=== PATIENT | male | born 1985 | race African-American/Black ===

== ENCOUNTER 2023-10-03 15:42 | Outpatient (AMB) | payer OTHER, SELFPAY ==
--- NOTE | 2023-10-03 15:45 | A.OFFPC_ITS ---
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 Will order labs. Pt reports his told him that he snores and has apneic episodes. Will refer for sleep study. Pt's blood pressure is elevated today. He reports that it is more stable at home, averaging in the 120s-130s/70s-80s. Denies chest pain, shortness of breath, headache, dizziness, and blurred vision. Pt c/o medial right knee pain. He reports that this started in November 2022 while training for a PT test. Pt reports the most pain with sprinting or running long distances. Pt has had an XR previously and gone to PT. Will repeat XR and consider MRI. Pt reports skin lesions (x2) to his scalp. He reports intermittent itching to these lesions. Will refer to derm. Pt c/o a buzzing noise in his ear (left). He reports that these episodes last only seconds to minutes. 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 Most likely tinnitus. Will refer to speech and hearing for further evaluation. [facility] Surgical History S/P shoulder surgery Family History Father Diabetes Mother No problems noted. 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 1. Little interest or pleasure in doing things: not at all 2. Feeling down, depressed, or hopeless: not at all 3. Trouble falling or staying asleep, or sleeping too much: not at all 4. Feeling tired or having little energy: not at all 5. Poor appetite or overeating: not at all 6. Feeling bad about yourself - or that you are a failure or have let yourself or your family down: not at all 7. Trouble concentrating on things, such as reading the newspaper or watching television: not at all 8. Moving or speaking so slowly that other people could have noticed. Or the opposite - being so fidgety or restless that you have been moving around a lot more than usual: not at all 9. Thoughts that you would be better off or of hurting yourself in some way: not at all Total score: 0 Depression Screening Interpretation: Negative Depression Screening Done: Yes 26898 - PHQ-9 Billing: Yes Source: Developed by Drs. Franky Agarwal, Yolande Dorsey, Riaz Li and colleagues, with an educational fior from [employer]. Thrive Questionnaire Date Thrive assessed: 10/03/23 I am a: Patient What is your living situation today?: I have a steady place to live Within the past 12 months, did the food you bought not last and you didn't have the money to get more?: Never true Within the past 12 months, did you worry whether your food would run out before you got money to buy more?: Never true Do you have trouble paying for medicines?: No Do you have trouble getting transportation to medical appointments?: No Do you have trouble paying your heating and electricity bill?: No Do you have trouble taking care of your child, family member or friend?: No Do you have trouble with day-to-day activities such as bathing, preparing meals, shopping, managing finances, etc.?: No Are you currently unemployed and looking for a job?: No Are you interested in more education?: No Please select the resources that you would like help with: None Currently or been in a relationship where the following occur: no concerns reported THRIVE Score: 0 AUDIT C Alcohol Use Questionnaire (AUDIT-C) 1. How often do you have a drink containing alcohol?: Never 3. How often do you have six or more drinks on one occasion?: Never Total Score: 0 Score Reviewed/Action Taken: Yes SARAH-7 AMB Questionnaire SARAH-7 Date SARAH - 7 assessed: 10/03/23 Feeling nervous, anxious, or on edge: 0 = Not at all Not being able to stop or control worryin = Not at all Worrying too much about different things: 0 = Not at all Trouble relaxin = Not at all Being so restless that it is hard to sit still: 0 = Not at all Becoming easily annoyed or irritable: 0 = Not at all Feeling afraid as if something awful might happen: 0 = Not at all Total SARAH-7 score (0-4 normal; 5-9 mild; 10-14 moderate; 15-21 severe): 0 Source: Developed by Drs. Franky Agarwal, Yolande Dorsey, Riaz Li and colleagues, with an educational fior from [employer]. SARAH-7 Assessment Billing SARAH-7 Assessment Tool: SARAH-7 Assessment 31157 Review of Systems Const Denies chills and Denies fever(s) Eyes Denies blurry vision ENT Denies vertigo, Denies dizziness and Denies sore throat Card Denies chest pain at rest, Denies chest pain with activity, Denies diaphoresis, Denies dyspnea and Denies dyspnea on exertion Resp Denies cough, Denies dyspnea, Denies dyspnea on exertion and Denies wheezing GI Denies abdominal pain, Denies melena, Denies hematochezia, Denies constipation, Denies diarrhea and Denies loose stools Denies hematuria Musc Denies numbness and Denies tingling Skin/Breast Denies lesions Neuro Denies vertigo, Denies dizziness, Denies numbness and Denies tingling Psych Denies anxiety, Denies depression, Denies homicidal ideation, Denies suicidal ideation and Denies other (substance abuse) Aller/Immun Denies wheezing Physical exam (Primary Care) Vital Signs: Last Vital Signs Pulse 67 10/03/23 15:46 BP 140/80 H 10/03/23 15:58 Pulse Ox 98 10/03/23 15:46 Oxygen Delivery Method Room Air 10/03/23 15:46 BMI result Body Mass Index 31.9 Tobacco/Smoking Status: Tobacco use Status Tobacco use date assessed 10/03/23 10/03/23 15:56 Patient Tobacco Use Status Never used Tobacco 10/03/23 15:56 e-Cigarette/Vaping Use Never Used 10/03/23 15:56 PHQ-9: PHQ-9 Score PHQ-9: Total score 0 10/03/23 16:08 Depression Screening Interpretation: Negative Thrive Assessment: Date of Thrive Assessment Date Thrive assessed 10/03/23 10/03/23 15:58 Currently or been in a relationship where the following occur: no concerns reported Const General: cooperative Nutritional Appearance: obese Orientation/consciousness: patient oriented x3 HENMT Head: Yes normal to inspection, Yes normocephalic and Yes atraumatic Ears: TM's normal bilaterally Eyes General: appearance normal, both eyes and all related structures Alignment and Position: alignment normal and position normal Neck Neck: Yes normal visual inspection and Yes no lymphadenopathy Thyroid: Thyroid normal Resp Effort & Inspection: normal respiratory effort Auscultation: clear to auscultation bilaterally Cardio Rate: regular rate Rhythm: regular rhythm Heart sounds: S1 normal heart sound present, S2 normal heart sound present and no murmurs GI Palpation (GI): Soft to palpation and nontender Auscultation: normal bowel sounds Other: dry skin noted to glans penis, no discharge or lesions noted Male General Exam: Yes normal external exam Penis: normal penis Scrotum: scrotum normal, testes descended bilaterally and no inguinal hernias Testes: no testicular mass Skin Other: occipital crown of scalp with dry macular clinical cytopathologist colored lesion, also noted to vertex of scalp Rashes: no rashes Neuro General: patient oriented x3, moves all extremities, no focal motor deficits and deep tendon reflexes 2+ bilaterally Romberg Test: Negative Extrem Other: right knee: - mcmurrays, - lachmans, no active swelling Psych Appearance: grossly normal Mental Status: mental status grossly normal Speech and movement: Normal speech and movement present Affect: normal affect Attitude: cooperative Thought process: Normal thought process present Thought content: Normal thought content present Insight: Good insight present (Psych) Judgement: Good judgement present (Psych) Assessment and Plan Assessment & Plan (1) Physical exam: Code(s): Z00.00 - Encounter for general adult medical examination without abnormal findings Plan: Labs ordered (2) Sleep apnea: Code(s): G47.30 - Sleep apnea, unspecified Plan: Referred for sleep study (3) Dermatitis: Code(s): L30.9 - Dermatitis, unspecified Plan: referred to derm (4) Hx of tinnitus: Code(s): Z86.69 - Personal history of other diseases of the nervous system and sense organs Plan: referred to speech and hearing Plan The patient agreed to the use of a director biomedical engineering for this encounter. Scribed for OLGA Bradley by Hattie Solitario director biomedical engineering, on 10/03/2023 at 16:15 EST. Orders: Orders TSH reflex Free T4 Today Z00.00 - Encounter for general adult medical examination without abnormal findings Complete Blood Count Auto Diff Today Z00.00 - Encounter for general adult medical examination without abnormal findings Comprehensive [place]. Panel Fast Today Z00.00 - Encounter for general adult medical examination without abnormal findings UA CC w/rflx Micro + Cult Today Z00.00 - Encounter for general adult medical examination without abnormal findings Lipid Panel Today Z00.00 - Encounter for general adult medical examination without abnormal findings XR knee RT 2V Today Referrals Dermatology Referral L30.9 - Dermatitis, unspecified Sleep Medicine Referral G47.30 - Sleep apnea, unspecified Speech and Hearing Referral Z86.69 - Personal history of other diseases of the nervous system and sense organs Coding Level of Care Code New Pt Prev Care 18-39yr(08026 Diagnoses Physical exam Z00.00 Sleep apnea G47.30 Dermatitis L30.9 Hx of tinnitus Z86.69 Additional Codes SARAH-7 Assessment Billing - SARAH-7 Assessment Tool: SARAH-7 Assessment 26160 ([id number])
[2023-10-03 15:46] VITALS: BP 140/88; PULSE 67; O2SAT 98; BMI 31.9
[2023-10-03 15:58] VITALS: BP 140/80
== END 2023-10-03 16:38 | disposition home or self-care (01) ==
PROVIDERS: PCP Nurse Practitioner Family; Visit Provider Nurse Practitioner Family
DX: Z00.00 Encounter for general adult medical examination without abnormal findings (principal); G47.30 Sleep apnea, unspecified; L30.9 Dermatitis, unspecified; Z86.69 Personal history of other diseases of the nervous system and sense organs
CPT/HCPCS: 99385

== ENCOUNTER 2023-11-06 06:34 | Outpatient (REF) | payer OTHER, SELFPAY ==
--- NOTE | ~2023-11-06 | XR_ITS ---
EXAMINATION: XR KNEE, RIGHT CLINICAL INFORMATION: Right knee pain. COMPARISON: None available. TECHNIQUE: Four views of the right knee. FINDINGS: Mild medial compartment joint space narrowing. No acute fracture or dislocation. No significant marginal osteophytes. No osseous erosion. Minimal medial compartment chondrocalcinosis. No significant joint effusion. XR/XR knee RT 4V IMPRESSION: Mild medial compartment joint space narrowing. Minimal medial compartment chondrocalcinosis.
[2023-11-06 11:16] LABS: Appearance Urine Clear; Color Urine Yellow; Glucose Urine UA Negative (Negative); Leukocyte Esterase Urine Negative (Negative); Nitrite Urine Negative (Negative); PH 5.5 (5.0-9.0); Specific Gravity - Urine 1.015 (1.005-1.025); Urine Blood Negative (Negative); Urine Ketones Negative (Negative); Urine Protein Negative (Neg-Trace)
[2023-11-06 11:20] LABS: MANUAL DIFF FLAG NO
[2023-11-06 11:25] LABS: Basophils Percent Auto 0.5 % (0-2); Eosinophils Absolute Auto 0.1 X10*3/uL (0.0-0.4); Eosinophils Percent Auto 1.6 % (0-4); Hemoglobin 15.5 g/dl (14.0-18.0); Imm Gran Abs Auto 0.01 X10*3/uL (0.00-0.03); Imm Gran Pct Auto 0.2 % (0.0-0.4); Lymphocytes Absolute Auto 2.8 X10*3/uL (1.2-4.9); Lymphocytes Percent Auto 43.9 % (20-40); Mean Corpuscular HGB Conc 34.4 g/dl (31.0-36.0); Mean Corpuscular Hemoglobin 28.9 pg (27.0-33.0); Mean Corpuscular Volume 83.8 fL (80.0-98.0); Mean Platelet Volume 11.1 fL (9.4-12.4); Monocytes Absolute Auto 0.9 X10*3/uL (0.1-1.2); Neutrophils Absolute Auto 2.5 x10*3/uL (2.0-8.3); Neutrophils Percent Auto 39.8 % (45-73); Platelet Count 286 X10*3/uL (160-400); Red Blood Count 5.37 X10*6/uL (4.60-5.80); White Blood Count 6.4 X10*3/uL (4.8-10.8)
[2023-11-06 14:02] LABS: Alanine Aminotransferase 21 U/L (0-40); Albumin Level 4.6 g/dL (3.5-5.0); Alkaline Phosphatase 81 U/L (39-117); Anion Gap 13 (12-20); Aspartate Amino Transferase 20 U/L (5-37); Bilirubin Total 1.4 mg/dL (0.0-1.0); Blood Urea Nitrogen 14 mg/dL (9-16); Calcium 9.5 mg/dL (8.4-10.2); Carbon Dioxide 28 mmol/L (22-29); Chloride 103 mmol/L (96-108); Cholesterol 206 mg/dL (<200); Estimated Glomerular Filt Rate > 60; Glucose Fasting 86 mg/dL (60-99); HDL Cholesterol 37 mg/dL (>40); LDL Cholesterol Calculated 151 mg/dL (<100); Potassium 3.8 mmol/L (3.3-5.1); Sodium 140 mmol/L (135-145); TSH reflex Free T4 2.02 uIU/mL (0.32-4.0); Total Protein 8.1 g/dL (6.5-8.0); Triglycerides 92 mg/dL (<150)
== END 2023-11-06 06:35 | disposition home or self-care (01) ==
LOC: HO.HMGCX 06:34
PROVIDERS: PCP Nurse Practitioner Family; Visit Provider Nurse Practitioner Family
DX: M25.561 Pain in right knee (principal); Z13.6 Encounter for screening for cardiovascular disorders; Z00.00 Encounter for general adult medical examination without abnormal findings
CPT/HCPCS: 36415; 73564; 80053; 80061; 81003; 84443; 85025

== ENCOUNTER 2023-11-23 12:30 | Outpatient (REF) | payer OTHER, SELFPAY ==
--- NOTE | ~2023-11-23 | XR_ITS ---
EXAMINATION: XR KNEE, LEFT XR KNEE, RIGHT CLINICAL INFORMATION: Pain in left knee. COMPARISON: 11/06/2023. TECHNIQUE: AP standing view of bilateral knees as well as sunrise view of the right knee. FINDINGS: Right knee: Redemonstration of mild narrowing of the medial compartment with mild chondrocalcinosis. Redemonstration of an ossicle along the lateral aspect of the lateral femoral condyle. Faint chondrocalcinosis in the lateral compartment. Asymmetrical lateral tilt and narrowing of the patella on the sunrise view provided. XR/XR knee RT 1V IMPRESSION: 1. Redemonstration of mild degenerative changes right knee. 2. Asymmetrical lateral tilt and narrowing of the patella on the sunrise view provided.
--- NOTE | ~2023-11-23 | XR_ITS ---
EXAMINATION: XR KNEE, LEFT XR KNEE, RIGHT CLINICAL INFORMATION: Pain in left knee. COMPARISON: 11/06/2023. TECHNIQUE: AP standing view of bilateral knees as well as sunrise view of the right knee. FINDINGS: Right knee: Redemonstration of mild narrowing of the medial compartment with mild chondrocalcinosis. Redemonstration of an ossicle along the lateral aspect of the lateral femoral condyle. Faint chondrocalcinosis in the lateral compartment. Asymmetrical lateral tilt and narrowing of the patella on the sunrise view provided. XR/XR knee LT 2V IMPRESSION: 1. Redemonstration of mild degenerative changes right knee. 2. Asymmetrical lateral tilt and narrowing of the patella on the sunrise view provided.
== END 2023-11-23 12:31 | disposition home or self-care (01) ==
LOC: HO.HOSX 12:30
PROVIDERS: Visit Provider Physician Assistant
DX: M25.561 Pain in right knee (principal); M25.562 Pain in left knee; Z91.85 Personal history of military service
CPT/HCPCS: 73560; 99202

== ENCOUNTER 2023-11-23 14:54 | Outpatient (AMB) | payer OTHER, SELFPAY ==
--- NOTE | 2023-11-23 15:05 | A.OFFVIS_ITS ---
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 Patient reports pain located at the medial aspect of knee. States with prolong walking and running he will feel a sharp pain as well as swelling. He is currently in the and had a PT test that he complete however after this test his knee had become swollen. He has completed PT however this has not helped with his pain. 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 He reports he is in the and had a PT test that he completed however after the test his knee became swollen. He currently states he has a sharp pain and swelling at the medial aspect of knee which is aggravated with walking, running and prolonged sitting. He also c/o catching and locking in his knee. He has completed physical therapy which did not provide him any relief. [facility] Surgical History S/P shoulder surgery Family History Father Diabetes Mother No problems noted. 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 Current occupation: , right hand dominant Cognitive needs: No Hearing needs: No Vision needs: No Review of Systems Const All systems reviewed & are unremarkable except as noted in HPI and below Physical Exam Vital Signs: BMI result Body Mass Index 31.9 Const General: cooperative, healthy appearing, comfortable, no acute distress, well developed and alert Orientation/consciousness: patient oriented x3 HEENT Head: Yes normal to inspection, Yes normocephalic and Yes atraumatic Eyes General: appearance normal, both eyes and all related structures Resp Effort & Inspection: normal respiratory effort and able to speak in complete sentences Cardio Rate: regular rate Peripheral pulses: Peripheral pulses 2+ throughout GI Palpation (GI): Soft to palpation Skin Lesions: no lesions Rashes: no rashes Neuro General: patient oriented x3 Extrem Other: Right knee: Skin intact, no erythema or joint effusion. Tenderness along the medial and lateral joint line. Full ROM with crepitus. Positive Jerry?s. No ligamentous laxity. NVI. Results Reviewed Results Reviewed: Xrays were obtained in the office today and personally reviewed by me of the right knee show lateralization of th patella with early medial joint narrowing. Assessment & Plan Assessment & Plan (1) Internal derangement of right knee: Code(s): M23.91 - Unspecified internal derangement of right knee Plan We discussed options which include PT, NSAIDs and injections. The patient will defer on the injection today and proceed with PT and NSAIDs. An MRI of the right knee was also ordered to further evaluate the integrity of meniscus. He was fit for a knee brace as well. If symptoms persist, the patient will contact me for an injection, otherwise he will see me back once the scan is complete. Orders: Orders XR knee LT 2V Today M25.562 - Pain in left knee XR knee RT 1V Today M25.561 - Pain in right knee PT Evaluation and Treatment Today M23.91 - Unspecified internal derangement of right knee MR knee RT wo con Today M17.11 - Unilateral primary osteoarthritis, right knee Patient Instructions: Scribed for Donald Crook PA-C, by Griffin Cunningham medical education specialist, on 11/23/2023 at 3:00 PM EST. IDonald PA-C, have personally reviewed and agree with the information entered by the scribe. Coding Level of Care Code New Pt Level 3 (15750) Diagnoses Internal derangement of right knee M23.91
[2023-11-23 15:13] VITALS: BMI 31.9
== END 2023-11-23 16:14 | disposition home or self-care (01) ==
PROVIDERS: PCP Nurse Practitioner Family; Visit Provider Physician Assistant
DX: M23.91 Unspecified internal derangement of right knee (principal)
CPT/HCPCS: 99203

== ENCOUNTER 2023-12-09 12:44 | Outpatient (REF) | payer OTHER, SELFPAY ==
--- NOTE | ~2023-12-09 | MR_ITS ---
EXAMINATION: MR KNEE WITHOUT CONTRAST, RIGHT CLINICAL INFORMATION: Unilateral primary osteoarthritis, right knee. COMPARISON: X-rays of the right knee November 2023 and October 2023. TECHNIQUE: MRI of the knee without contrast was performed using routine sequences on a high-field scanner. FINDINGS: MENISCI: Medial Meniscus: There is blunting and irregularity of the free edge of the posterior horn, there is also some oblique increased signal extending through the inner half of the posterior horn extending to this area of blunting. Findings indicative of meniscal tear. Lateral Meniscus: Intact LIGAMENTS: Cruciate: Intact Collateral: Intact EXTENSOR MECHANISM: Intact ARTICULAR CARTILAGE/BONE: Patellofemoral Compartment: Normal Medial Compartment: There is an area of nonuniform up to high-grade cartilage loss with subchondral cystic change and edema in the central weightbearing portion of the femoral articular surface. This area extends over 2.4 cm transverse and 3 cm AP. There are small associated marginal osteophytes. The tibial articular cartilage appears normal. Lateral Compartment: Normal JOINT FLUID AND BURSAE: Normal MR/MR knee RT wo con IMPRESSION: 1. Tear of the posterior horn of the medial meniscus. 2. Focal prominent arthrosis along the central weightbearing portion of the femoral articular surface. 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
== END 2023-12-09 12:45 | disposition home or self-care (01) ==
LOC: HO.MRI 12:44
PROVIDERS: PCP Nurse Practitioner Family; Visit Provider Physician Assistant
DX: M17.11 Unilateral primary osteoarthritis, right knee (principal)
CPT/HCPCS: 73721

== ENCOUNTER 2023-12-29 12:02 | Outpatient (AMB) | payer OTHER, SELFPAY ==
--- NOTE | 2023-12-29 12:11 | A.OFFVIS_ITS ---
Intake Visit Reasons: OV-Right knee MRI review-discuss surgery? Intake Note: Rafi a 38 year old male who presents today for an MRI review of his right knee. Patient reports pain located at the medial aspect of knee. States with prolong walking and running he will feel a sharp pain as well as swelling. He is currently in the and had a PT test that he complete however after this test his knee had become swollen. He has completed PT however this has not helped with his pain. MR/MR knee RT wo con IMPRESSION: 1. Tear of the posterior horn of the medial meniscus. 2. Focal prominent arthrosis along the central weightbearing portion of the femoral articular surface. 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 Allergies No Known Allergies Allergy (Verified 11/23/23 15:06) HPI HPI OV-Right knee MRI review-discuss surgery?: Details: Rafi a 38 year old male who presents today for an MRI review of his right knee. Patient reports pain located at the medial aspect of knee. States with prolong walking and running he will feel a sharp pain as well as swelling. He is currently in the and had a PT test that he complete however after this test his knee had become swollen. He has not completed PT. [facility] Surgical History S/P shoulder surgery Family History Father Diabetes Mother No problems noted. 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 MR/MR knee RT wo con IMPRESSION: 1. Tear of the posterior horn of the medial meniscus. 2. Focal prominent arthrosis along the central weightbearing portion of the femoral articular surface. 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 Assessment & Plan Assessment & Plan (1) Tear of medial meniscus of right knee: Code(s): S83.241A - Other tear of medial meniscus, current injury, right knee, initial encounter Category: Medical Plan: Right knee [place] [facility] [place] We discussed surgery and non surgical options. He is hesitant to undergo surgery given his limited pain but doesn't feel like he would be able to complete fitness test. We will try formal PT and return to see me in 6 weeks. Coding Level of Care Code Est Pt Level 4 (37528) Diagnoses Tear of medial meniscus of right knee S83.241A
== END 2023-12-29 12:37 | disposition home or self-care (01) ==
PROVIDERS: PCP Nurse Practitioner Family; Visit Provider Orthopaedic Surgery
DX: S83.241A Other tear of medial meniscus, current injury, right knee, initial encounter (principal)
CPT/HCPCS: 99213

== ENCOUNTER → 2023-12-29 12:02 | Outpatient (BNVA) | payer OTHER, SELFPAY | PROVIDERS: PCP Nurse Practitioner Family; Visit Provider Orthopaedic Surgery | DX: S83.241A Other tear of medial meniscus, current injury, right knee, initial encounter (principal); X50.3XXA Overexertion from repetitive movements, initial encounter; Y93.9 Activity, unspecified; Y92.9 Unspecified place or not applicable; Y99.9 Unspecified external cause status; Z56.82 Military deployment status | CPT/HCPCS: 99212 ==

== ENCOUNTER 2024-01-05 07:51 | Outpatient (AMB) | payer OTHER, SELFPAY ==
[2024-01-05 07:55] VITALS: BP 192/115; PULSE 85; O2SAT 99; BMI 30.2
--- NOTE | 2024-01-05 07:55 | A.OFFVIS_ITS ---
Vital Signs 01/05/24 07:55 Height 6 ft 1 in Weight 229 lb BMI 30.2 BP 192/115 H Blood Pressure Location Rt brachial Position Sitting Pulse 85 Pulse Source Pulse Oximeter Pulse Oximetry (%) 99 Oxygen Delivery Method Room Air Intake Visit Reasons: INP-Micheal-LVM Intake Note: Patient presents for MICHEAL. Patient stops breathing while sleeping just found out once he got , . Allergies No Known Allergies Allergy (Verified 01/05/24 08:05) Medication List - Last Reconciled 01/05/24 by Rosie Tovar, CAROLINE famotidine 30 mg PO DAILY HPI Comments Details: 38-yr-old male presents for new in-person patient visit for sleep consultation. Pt is concerned he may have sleep apnea. Pt reports he was unaware that he was having snoring and having periods of apneas until he was recently . Pt also notes that his new position is a [employer], which requires him to be on-call at all times and do an occasional overnight shift, which he notes may be contributing to his daytime tiredness. Pt's initial BP here 192/115 w/ HR 85, on Recheck 170s/90s. Pt states his BP is always high when he sees a civilian health care provider, but at home is usually 130/80. Pt denies any current SOB or chest pain. He did work overnight last night from around 10pm to 3am. Sleep questionnaire: Have you ever been diagnosed with a sleep disorder? No Have you ever had a sleep study in the past? No Have you ever been treated for a sleep disorder? No Do you take medications for a sleep disorder? No Do you snore? No Do you wake up gasping at night? Yes Do you have episodes of apneas? Yes If yes, are they witnessed? Yes Do you have episodes of nocturnal chest pain or dyspnea? No Do you have difficulty initiating sleep? Yes Do you have difficulty maintaining sleep? Yes Do you wake up tired? Sometimes Do you have headaches upon awakening? No Do you wake up with dry mouth or throat? Yes Do you have GERD? Yes- recently Do you have daytime tiredness or fatigue? Yes Do you have nocturnal leg cramps? No Do you have symptoms of restless legs? No Do you act out your dreams? No Sleep hygiene questionnaire: What is your usual sleep routine? Usual bedtime is at 9:30pm; Usual wake-up time is at 6am. Do you take naps? Yes- tries to after work. Is your sleep environment cool, dark, and quiet? Yes- has black out curtains. Do you exercise? Walking, push-ups, sit-ups. Do you take caffeine or other stimulants? No usual caffeine. Do you use electronics in bed? Watched TV in bed in bed. What is your work schedule? 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 Hypersomnolence questionnaire: Do you easily fall asleep when inactive? At times Have you ever had episodes of sudden weakness? No Have you ever had episodes of sudden weakness associated with strong emotions? No PFSH Surgical History S/P shoulder surgery Family History Father Diabetes Mother No problems noted. 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 Current occupation: , right hand dominant Cognitive needs: No Hearing needs: No Vision needs: No Review of Systems Const All systems reviewed & are unremarkable except as noted in HPI and below Physical Exam Vital Signs: Last Vital Signs Pulse 85 01/05/24 07:55 BP 192/115 H 01/05/24 07:55 Pulse Ox 99 01/05/24 07:55 Oxygen Delivery Method Room Air 01/05/24 07:55 BMI result Body Mass Index 30.2 Const General: no acute distress Orientation/consciousness: patient oriented x3 HEENT Other: Mallampati stage IV Resp Effort & Inspection: able to speak in complete sentences Auscultation: clear to auscultation bilaterally Cardio Rate: regular rate Rhythm: regular rhythm Heart sounds: S1 normal heart sound present and S2 normal heart sound present Neuro General: patient oriented x3 Psych Mental Status: mental status grossly normal Speech and movement: Clear speech present Attitude: cooperative Telehealth Telehealth Location of provider rendering services: practice address Location of patient: address on file Patient Identification confirmed using: Name, : Yes Telehealth method: voice only Patient verbally consented to treatment: Yes Patient verbally consented to billing insurance company: Yes Patient informed of any privacy concerns related to visit: Yes Assessment & Plan Assessment & Plan (1) Snoring: Code(s): R06.83 - Snoring Category: Medical (2) Witnessed apneic spells: Code(s): R06.81 - Apnea, not elsewhere classified Category: Medical (3) Sleep difficulties: Code(s): G47.9 - Sleep disorder, unspecified Category: Medical (4) Excessive daytime sleepiness: Code(s): G47.19 - Other hypersomnia Category: Medical (5) Elevated blood pressure reading: Code(s): R03.0 - Elevated blood-pressure reading, without diagnosis of hypertension Category: Medical Plan For elevated BP: Pt is asymptomatic and reports a h/o white coat syndrome. Pt has a BP cuff at home- pt advised to check P at home bid for the next few days, and let me know if any BP is > 140/90. Advised that uncontrolled high BP is a risk factor for stroke. Pt is advised to undergo HST to assess for sleep apnea. Did review simple strategies to improve sleep hygiene- maintaining consistent sleep schedule on weekdays and weekends as able. F/u upon review of above and in-clinic in 6 months. Case discussed w/ Dr Zandra Vela. Orders: Orders RT home sleep study Today G47.19 - Other hypersomnia, G47.9 - Sleep disorder, unspecified, R06.81 - Apnea, not elsewhere classified, R06.83 - Snoring Coding Level of Care Code New Pt Level 4 (74645) Diagnoses Snoring R06.83 Witnessed apneic spells R06.81 Sleep difficulties G47.9 Excessive daytime sleepiness G47.19 Elevated blood pressure reading R03.0 Ullin Sleepiness Scale Questions Sitting and reading: moderate chance of dozing Watching TV: moderate chance of dozing Sitting inactive in a theater, movie etc.: moderate chance of dozing As a passenger in a car for an hour without break: high chance of dozing Lying down in the afternoon when circumstances permit: high chance of dozing Sitting and talking to someone: slight chance of dozing Sitting quietly after lunch without alcohol: high chance of dozing In a car, while stopped for a few minutes in the traffic: would never doze ESS < 10: normal, ESS > 12: pathologic: 16
== END 2024-01-05 08:50 | disposition home or self-care (01) ==
PROVIDERS: PCP Nurse Practitioner Family; Visit Provider Nurse Practitioner Family
DX: R06.83 Snoring (principal); R06.81 Apnea, not elsewhere classified; G47.9 Sleep disorder, unspecified; G47.19 Other hypersomnia; R03.0 Elevated blood-pressure reading, without diagnosis of hypertension
CPT/HCPCS: 99204

== ENCOUNTER → 2024-01-05 07:51 | Outpatient (BNVA) | payer OTHER, SELFPAY | PROVIDERS: PCP Nurse Practitioner Family; Visit Provider Nurse Practitioner Family | DX: R06.83 Snoring (principal); R06.81 Apnea, not elsewhere classified; G47.9 Sleep disorder, unspecified; G47.19 Other hypersomnia; R03.0 Elevated blood-pressure reading, without diagnosis of hypertension | CPT/HCPCS: 99202 ==

== ENCOUNTER → 2024-02-13 14:48 | Outpatient (REF) | payer OTHER, SELFPAY | LOC: HO.SL 14:48 | PROVIDERS: PCP Nurse Practitioner Family; Visit Provider Nurse Practitioner Family | DX: G47.33 Obstructive sleep apnea (adult) (pediatric) (principal); G47.19 Other hypersomnia; R06.83 Snoring; G47.9 Sleep disorder, unspecified | CPT/HCPCS: 95806 ==

== ENCOUNTER → 2024-02-13 14:57 | Outpatient (BNV) | payer OTHER, SELFPAY | PROVIDERS: PCP Nurse Practitioner Family; Visit Provider Psychiatry & Neurology Neurology | DX: G47.33 Obstructive sleep apnea (adult) (pediatric) (principal) | CPT/HCPCS: 95806 ==

== ENCOUNTER 2024-02-23 12:23 | Outpatient (AMB) | payer OTHER, SELFPAY ==
--- NOTE | 2024-02-23 12:24 | A.OFFVIS_ITS ---
Vital Signs 02/23/24 12:27 Height 6 ft 1 in Weight 226 lb BMI 29.8 Intake Visit Reasons: OV-Right knee MRI review-discuss surgery? Intake Note: Raghav is a 38 year old male who presents today for a follow up of his right knee. At his last visit we discussed surgical intervention however he is hesitant to undergo surgery. He is working with physical therapy, at this point he would like to continue with this and continue to avoid surgery. He is working with [facility] who has discharged him with a home exercise program. Allergies No Known Allergies Allergy (Verified 02/23/24 12:29) HPI HPI OV-Right knee MRI review-discuss surgery?: Details: Raghav is a 38 year old male who presents today for an MRI review of the right knee. We discussed this previously and he was hesitant to undergo surgery as he is almost fully functional except for hi fit test. We elected to try PT and he reports feeling improvements. He has no pain but still not sure he would be able to run. [facility] Surgical History S/P shoulder surgery Family History Father Diabetes Mother No problems noted. 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 There is medial TTP and a mildly + Steinmen's and a trace effusion. Results Reviewed Results Reviewed: I personally reviewed the MR images. 1. Tear of the posterior horn of the medial meniscus. 2. Focal prominent arthrosis along the central weightbearing portion of the femoral articular surface. 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 He feels well and has no pain but still hesitant and can overdo it. He is, however, improving with PT. I reviewed hit MRI with him and we discussed options. I do not think the meniscus tear is his primary problem. He has a large chondral lesion that is likely chronic that has progressed to involve the majority of the weight bearing portion of the MFC. This is a more difficulty problem and I think a meniscectomy would be largely unhelpful. I recommend he continue strengthening an d see me back in 3 months. Out goal is for him to complete the walking portion of the fitness test next year. (2) Internal derangement of right knee: Code(s): M23.91 - Unspecified internal derangement of right knee Category: Medical Plan: (3) Arthritis of right knee: Code(s): M17.11 - Unilateral primary osteoarthritis, right knee Category: Medical Plan: Coding Level of Care Code Est Pt Level 4 (83536) Diagnoses Tear of medial meniscus of right knee S83.241A Internal derangement of right knee M23.91 Arthritis of right knee M17.11
[2024-02-23 12:27] VITALS: BMI 29.8
== END 2024-02-23 13:03 | disposition home or self-care (01) ==
PROVIDERS: PCP Nurse Practitioner Family; Visit Provider Orthopaedic Surgery
DX: S83.241A Other tear of medial meniscus, current injury, right knee, initial encounter (principal); M23.91 Unspecified internal derangement of right knee; M17.11 Unilateral primary osteoarthritis, right knee
CPT/HCPCS: 99213

== ENCOUNTER → 2024-02-23 12:23 | Outpatient (BNVA) | payer OTHER, SELFPAY | PROVIDERS: PCP Nurse Practitioner Family; Visit Provider Orthopaedic Surgery | DX: S83.241D Other tear of medial meniscus, current injury, right knee, subsequent encounter (principal); M23.91 Unspecified internal derangement of right knee; M17.11 Unilateral primary osteoarthritis, right knee | CPT/HCPCS: 99212 ==

== ENCOUNTER 2024-05-01 08:16 | Outpatient (AMB) | payer OTHER, SELFPAY ==
--- NOTE | 2024-05-01 08:24 | A.OFFPC_ITS ---
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 He reports that his blood pressure at home is elevated diastolically. Will start losartan 25mg. Will have pt conitnue to monitor his BP at home and record readings. Denies chest pain, shortness of breath, dizziness, and blurred vision. Pt is following up with ortho. Pt c/o left-sided lower back pain. He denies any radicular symptoms. Will order XR. Recommended pt continue stretching routine. Denies any signs of cauda equina. Sleep apnea: uses a cpap. [facility] Surgical History S/P shoulder surgery Family History Father Diabetes Mother No problems noted. 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 1. Little interest or pleasure in doing things: not at all 2. Feeling down, depressed, or hopeless: not at all 3. Trouble falling or staying asleep, or sleeping too much: several days 4. Feeling tired or having little energy: not at all 5. Poor appetite or overeating: not at all 6. Feeling bad about yourself - or that you are a failure or have let yourself or your family down: not at all 7. Trouble concentrating on things, such as reading the newspaper or watching television: not at all 8. Moving or speaking so slowly that other people could have noticed. Or the opposite - being so fidgety or restless that you have been moving around a lot more than usual: not at all 9. Thoughts that you would be better off or of hurting yourself in some way: not at all Total score: 1 Depression Screening Interpretation: Negative Depression Screening Done: Yes 61972 - PHQ-9 Billing: Yes Source: Developed by Drs. Franky Agarwal, Yolande Dorsey, Riaz Li and colleagues, with an educational fior from [employer]. Thrive Questionnaire Date Thrive assessed: 05/01/24 I am a: Patient What is your living situation today?: I have a steady place to live Within the past 12 months, did the food you bought not last and you didn't have the money to get more?: Never true Within the past 12 months, did you worry whether your food would run out before you got money to buy more?: Never true Do you have trouble paying for medicines?: No Do you have trouble getting transportation to medical appointments?: No Do you have trouble paying your heating and electricity bill?: No Do you have trouble taking care of your child, family member or friend?: No Do you have trouble with day-to-day activities such as bathing, preparing meals, shopping, managing finances, etc.?: No Are you currently unemployed and looking for a job?: No Are you interested in more education?: No Please select the resources that you would like help with: None Currently or been in a relationship where the following occur: No concerns reported THRIVE Score: 0 AUDIT C Alcohol Use Questionnaire (AUDIT-C) 1. How often do you have a drink containing alcohol?: Never 3. How often do you have six or more drinks on one occasion?: Never Total Score: 0 Score Reviewed/Action Taken: Yes SARAH-7 AMB Questionnaire SARAH-7 Date SARAH - 7 assessed: 05/01/24 Feeling nervous, anxious, or on edge: 0 = Not at all Not being able to stop or control worryin = Not at all Worrying too much about different things: 0 = Not at all Trouble relaxin = Not at all Being so restless that it is hard to sit still: 0 = Not at all Becoming easily annoyed or irritable: 0 = Not at all Feeling afraid as if something awful might happen: 0 = Not at all Total SARAH-7 score (0-4 normal; 5-9 mild; 10-14 moderate; 15-21 severe): 0 Source: Developed by Drs. Franky Agarwal, Yolande Dorsey, Riaz Li and colleagues, with an educational fior from [employer]. SARAH-7 Assessment Billing SARAH-7 Assessment Tool: SARAH-7 Assessment 62300 Review of Systems Const Reports as per HPI Physical exam (Primary Care) Vital Signs: Last Vital Signs Pulse 86 05/01/24 08:30 BP 140/90 H 05/01/24 08:30 Pulse Ox 98 05/01/24 08:30 Oxygen Delivery Method Room Air 05/01/24 08:30 BMI result Body Mass Index 29.8 Tobacco/Smoking Status: Tobacco use Status Tobacco use date assessed 10/03/23 05/01/24 08:25 Patient Tobacco Use Status Never used Tobacco 05/01/24 08:25 e-Cigarette/Vaping Use Never Used 05/01/24 08:25 PHQ-9: PHQ-9 Score PHQ-9: Total score 1 05/01/24 08:55 Depression Screening Interpretation: Negative Thrive Assessment: Date of Thrive Assessment Date Thrive assessed 05/01/24 05/01/24 08:31 Currently or been in a relationship where the following occur: No concerns reported Const General: cooperative Orientation/consciousness: patient oriented x3 Resp Effort & Inspection: normal respiratory effort Auscultation: clear to auscultation bilaterally Cardio Rate: regular rate Rhythm: regular rhythm Heart sounds: S1 normal heart sound present and S2 normal heart sound present Back/Spine/Pelvis Other: increased lower back discomfort with heel and toe walking and LLE raises, no radicular symptoms, no pain with palpation Neuro General: patient oriented x3 Extrem Right lower extremity: no edema Left lower extremity: no edema Assessment and Plan Assessment & Plan (1) Lower back pain: Code(s): M54.50 - Low back pain, unspecified Plan: XRs ordered (2) HTN (hypertension): Code(s): I10 - Essential (primary) hypertension (3) Sleep apnea: Code(s): G47.30 - Sleep apnea, unspecified Plan: using cpap Plan The patient agreed to the use of a medical art therapist for this encounter. Scribed for OLGA Bradley by Hattie Solitario medical art therapist, on 05/01/2024 at 09:10 EST. Orders: Orders XR lumbar spine 2-3V Today M54.50 - Low back pain, unspecified Medications: New famotidine 30 mg (1.5 x 20 mg) PO DAILY 90 tabs 0RF losartan 25 mg PO DAILY 30 days 30 tabs 2RF Coding Level of Care Code Est Pt Level 3 (76459) Diagnoses Lower back pain M54.50 HTN (hypertension) I10 Sleep apnea G47.30 Additional Codes SARAH-7 Assessment Billing - SARAH-7 Assessment Tool: SARAH-7 Assessment [id number] ([id number])
[2024-05-01 08:30] VITALS: BP 140/90; PULSE 86; O2SAT 98; BMI 29.8
== END 2024-05-01 09:52 | disposition home or self-care (01) ==
PROVIDERS: PCP Nurse Practitioner Family; Visit Provider Nurse Practitioner Family
DX: M54.50 Low back pain, unspecified (principal); I10 Essential (primary) hypertension; G47.30 Sleep apnea, unspecified

== ENCOUNTER → 2024-05-01 08:16 | Outpatient (BNVA) | payer OTHER, SELFPAY | PROVIDERS: PCP Nurse Practitioner Family; Visit Provider Nurse Practitioner Family ==

== ENCOUNTER 2024-05-01 09:22 | Outpatient (REF) | payer OTHER, SELFPAY ==
--- NOTE | ~2024-05-01 | XR_ITS ---
EXAMINATION: XR LUMBOSACRAL SPINE CLINICAL INFORMATION: M54.50 - Low back pain, unspecified COMPARISON: None available. TECHNIQUE: Three views of the lumbosacral spine. FINDINGS: Normal mineralization. No fracture, dislocation, or focal bone lesion. There is a trace levoconvex scoliosis. There is a normal lumbar lordosis. Alignment is normal without subluxation. Normal facet alignment. Mild degenerative disc changes present L5-S1 with associated mild left greater than right degenerative facet changes. No radiographic SI joint abnormality. No soft tissue abnormalities. XR/XR lumbar spine 2-3V IMPRESSION: 1. No acute findings lumbar spine. 2. Mild degenerative disc and facet changes L5-S1. Electronically signed by: Triston Orantes MD 07/10/2024 03:05 PM ERICA
== END 2024-05-01 09:23 | disposition home or self-care (01) ==
LOC: HO.HMGCX 09:22
PROVIDERS: PCP Nurse Practitioner Family; Visit Provider Nurse Practitioner Family
DX: M54.50 Low back pain, unspecified (principal)
CPT/HCPCS: 72100; 99212

== ENCOUNTER → 2024-05-01 09:26 | Outpatient (BNV) | payer OTHER, SELFPAY | PROVIDERS: PCP Nurse Practitioner Family; Visit Provider Radiology Diagnostic Radiology | DX: M54.50 Low back pain, unspecified (principal) | CPT/HCPCS: 72100 ==

== ENCOUNTER 2024-05-10 12:27 | Outpatient (AMB) | payer OTHER, SELFPAY ==
--- NOTE | 2024-05-10 12:29 | MHC.OFFVIS ---
Vital Signs 05/10/24 12:30 Height 6 ft 1 in Weight 226 lb BMI 29.8 Intake Visit Reasons: OV-Right knee pain-follow up Intake Note: Raghav is a 38 year old male who presents today for a follow up of his Right Knee Medial Meniscus Tear, at his last visit a Menisectomy was discussed. Our current goal is to complete the walking portion of the fitness test next year. Allergies No Known Allergies Allergy (Verified 05/01/24 08:31) HPI HPI OV-Right knee pain-follow up: Details: Raghav is a 38 year old male who presents today for a follow up of his Right Knee Medial Meniscus Tear, at his last visit a Menisectomy was discussed. Our current goal is to complete the walking portion of the fitness test next year. He tried running recently and his knee swelled up afterward and he was not able to continue his run. [facility] Surgical History S/P shoulder surgery Family History Father Diabetes Mother No problems noted. 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 There is medial TTP and a mildly + Steinmen's and a trace effusion. Assessment & Plan Assessment & Plan (1) Arthritis of right knee: Code(s): M17.11 - Unilateral primary osteoarthritis, right knee Category: Medical Plan: This is a 38-year-old gentleman with right knee osteoarthritis. I recommend that he abstain from the running portion of the physical fitness test in the . A form was filled out for him. I would like to see him back in approximately 6 months. This is a chronic condition and I do not think he will be able to engage in running on a regular basis. Coding Level of Care Code Est Pt Level 3 (11764) Diagnoses Arthritis of right knee M17.11
[2024-05-10 12:30] VITALS: BMI 29.8
== END 2024-05-10 13:17 | disposition home or self-care (01) ==
PROVIDERS: PCP Nurse Practitioner Family; Visit Provider Orthopaedic Surgery
DX: S83.241A Other tear of medial meniscus, current injury, right knee, initial encounter (principal); M17.11 Unilateral primary osteoarthritis, right knee
CPT/HCPCS: 99213

== ENCOUNTER → 2024-05-10 12:27 | Outpatient (BNVA) | payer OTHER, SELFPAY | PROVIDERS: PCP Nurse Practitioner Family; Visit Provider Orthopaedic Surgery | DX: M17.11 Unilateral primary osteoarthritis, right knee (principal) | CPT/HCPCS: 99212 ==

== ENCOUNTER 2024-07-25 09:59 | Outpatient (AMB) | payer OTHER, SELFPAY ==
--- OUTSIDE RECORDS SUMMARY | 2024-07-25 10:05 | XMS_ITS | Continuity of Care Document ---
Author Name [facility] Organization [facility] Care Team Providers Care Journalism Instructor Name Role Phone [facility] Unavailable Unavailable Medications Combined list of outpatient medications from Department of Defense and Veterans Affairs facilities.Medications provided include 1) outpatient medications from the last 15 months, and 2) patient-reported medications. Medication Details Route Status Patient Instructions Prescription Expires Prescription Number Last Dispense Date Ordering Provider Order Date Order Qty Source FAMOTIDINE (FAMOTIDINE ), 20MG, TABLET, ORAL, IVAX PHARMACEUT, 100 ea. BOTTLE Active [id number] 2023 60 Pharmac y Data Transac tion Service Facilit y FAMOTIDINE (FAMOTIDINE ), 20MG, TABLET, ORAL, IVAX PHARMACEUT, 100 ea. BOTTLE Active [id number] 4 2023 60 Pharmac y Data Transac tion Service Facilit y ibuprofen 800 mg oral tablet 1 tab(s), Oral, every 8 hr, 1 tablet every 8 hours as needed for pain not to exceed 3200 mg/day with food or milk, # 30 tab(s), 0 total refill(s ), Acute, 12/27/23 11:00:00 PM CDT, 1 tab(s) Oral every 8 hr,Instr :1 tablet every 8 hours as needed for pain not to exceed 3200 mg/day; with food or milk, Pharmacy : [facility] 2,10E+07[facility] Oral (given by mouth) Complet ed 12/28/2023 30.0 [id number]-A F-C-66t h [facility] TRIAMCINOLO NE ACETONIDE (TRIAMCINOL ONE ACETONIDE), 0.1%, CREAM(GM), TOPICAL, [facility] 80 g JAR Active [id number] 4 2023 80 Pharmac y Data Transac tion Service Facilit y Allergies, Adverse Reactions, Alerts Combined list of allergies from Department of Defense and Veterans Affairs facilities. It does not include entries that were removed or entered in error. Substance Category Reaction Severity Reaction type Status Date Reported Comments Source No Known Allergies Drug allergy (disorder) active 02/04/2016 [facility] Immunizations Combined list of available immunizations from the Department of Defense and Veterans Affairs facilities. 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 (MOD) complet ed SARS-COV- 2 (COVID-19 ) vaccine, mRNA, spike protein, LNP, preservat betzy free, 100 mcg or 50 mcg dose DoD COVID Vaccine Moderna 2020 zzRig ht Arm [id number] complet ed COVID Vaccine Moderna 11/27/20 Given Ambulat ory Pharmac y SARS-COV-2 (COVID-19) vaccine, mRNA, spike protein, LNP, preservative free, 100 mcg or 50 mcg dose 1 2020 ALMONACID, KELI S [id number] 207 Moderna US, Inc. (MOD) complet ed SARS-COV- 2 (COVID-19 ) vaccine, mRNA, spike protein, LNP, preservat betzy free, 100 mcg or 50 mcg dose DoD influenza, injectable, quadrivalent- pf 2020 [id number] 150 Seqirus complet ed influenza , injectabl e, quadrival ent-pf 10/16/20 Given Ambulat ory Pharmac y hepatitis A adult vaccine 2019 [id number] GlaxoSmithKli ne complet ed hepatitis A adult vaccine 04/25/20 Given Ambulat ory Pharmac y poliovirus vaccine, inactivated 2018 10 sanofi pasteur complet ed polioviru s vaccine, inactivat ed 07/20/19 Given Ambulat ory Pharmac y influenza, injectable, quadrivalent 2018 [id number] 158 Seqirus complet ed influenza , injectabl e, quadrival ent 07/20/19 Given Ambulat ory Pharmac y measles, mumps and rubella virus vaccine 0 2015 03 () Not Given measles, mumps and rubella virus vaccine DoD varicella virus vaccine 0 2015 21 () Not Given varicella virus vaccine DoD hepatitis B vaccine, unspecified formulation 0 2015 45 () Not Given hepatitis B vaccine, unspecifi ed formulati on DoD tetanus, diphtheria, acellular pertu is 2015 [id number] 115 SystematicBytesKli ne complet ed tetanus, diphtheri a, acellular pertussis 01/21/16 Given Ambulat ory Pharmac y meningococcal A,C,Y,W-135 (MCV4P) 2015 [id number] sanofi pasteur complet ed meningoco ccal A,C,Y,W-1 35 (MCV4P) 01/21/16 Given Ambulat ory Pharmac y meningococcal polysaccharid e (groups A, C, Y and W-135) diphtheria toxoid conjugate vaccine (MCV4P) 1 2015 [id number] 114 Sanofi Pasteur (PMC) complet ed meningoco ccal polysacch aride (groups A, C, Y and W-135) diphtheri a toxoid conjugate vaccine (MCV4P) DoD tetanus toxoid, reduced diphtheria toxoid, and acellular pertu is vaccine, adsorbed 1 2015 [id number] 115 Mozy (SKB) complet ed tetanus toxoid, reduced diphtheri a toxoid, and acellular pertussis vaccine, adsorbed DoD Vital Signs Combined list of inpatient and outpatient Vital Signs from Department of Defense and Veterans Affairs, ranging from 12 months to all on record, depending upon the facility. Vital Sign Value Date Comments Source Systolic Blood Pressure 158mm[Hg] 12/27/2022 17:21:00 Ambulatory Pharmacy Diastolic Blood Pressure 98mm[Hg] 12/27/2022 17:21:00 Ambulatory Pharmacy Mean Arterial Pressure, Calc 118mm[Hg] 12/27/2022 17:21:00 Ambulatory P harmacy Peripheral Pulse Rate 105bpm 12/27/2022 17:21:00 Ambulatory Pharmacy Respiratory Rate 12br/min 12/27/2022 17:21:00 Ambulatory Pharmacy BP Site 12/27/2022 17:21:00 Ambul atory Pharmacy Blood Pressure Manual 12/27/2022 17:21:00 Ambulatory Pharmacy Encounters Combined list of: 1) Encounters from Department of [facility] facilities going back up to thelast 18 months. 2) Encounters from the Department of Defense facilities going back up to 280 months. Location Location Details Encounter Type Encounter Number Reason For Visit Attending Provider ADM Date DC Date Status Disposition Source [facility]) OUTPATIENT [id number] Notes Entered by: SHEILA KAMARA 04 Feb 2016 0928 ------- ------- ------- ------- -- left knee pain NICHOLAS KAMARA 02/03 Released with Work/Duty Limitations [facility]) [facility]) OUTPATIENT [id number] Notes Entered by: IGNACIA MATHEWS 18 Mar 2016 1757 ------- ------- ------- ------- -- referen ce hearing screeni ng IGNACIA MATHEWS 03/18 Released w/o Limitations [facility] ) 8344R-[id number] AMDS Dental [id number] YVON TONO 08/18 Discharge Disposition: Home or Self Care 8344R-4 39 AMDS 8344R-439 AMDS Between Visit [id number] 06/03 Discharge Disposition: Home or Self Care 8344R-4 39 AMDS 8344R-439 AMDS Between Visit [id number] 07/04 Discharge Disposition: Home or Self Care 8344R-4 39 AMDS Procedures Combined list of: 1) Procedures from Department of Veterans Affairs facilities going back up to thelast 18 months, not all VA non-surgical procedures are included; 2) All procedures from the Department of Defense facilities. Procedure Procedure Type Code Date Perfomer Comments Sourc e No data available for this section Ambulato ry Pharmacy EAR MOLD/INSERT, NOT DISPOSABLE, ANY TYPE 6 [facility] Audiometry Group Testing Audiometry Group Testing 85037 6 IGNACIA MATHEWS [facility] Ear Protector Attenuation Measurements Ear Protector Attenuation Measurements 56384 6 IGNACIA MATHEWS [facility] Threshold Audiogram (Pure Tone) Threshold Audiogram (Pure Tone) 58888 6 IGNACIA MATHEWS [facility] Ear mold/insert, not disposable, any type 6 IGNACIA MATHEWS [facility] Social History Combined list of available smoking, tobacco, and other social history from Department of Defense and Veterans Affairs facilities. Social History Type Response Date Comment Sour e Male 04/21/2022 Ambulatory Pha rmacy Sexual Orientation Ambula tory Pharmacy Gender identity Ambulator y Pharmacy This section is an empty soc ial history section. [facility] Assessment and Plan Combined list of future care activities from Department of Defense and Veterans Affairs facilities (e.g., assessment and plan notes, appointments, orders, and referrals). Additional future care activities may be listed in the Plan of Care section. Result Assessment and Plan Date Source Assessment and Plan Extracted from:Title : Office Clinic Note Author: LULU REESE PA Date: 12/27/22 1.?Right knee pain Ordered: XR Knee Complete 4+ Views Right Referral Request 2.0 ? 2.?Elevated blood pressure reading without diagnosis of HTN (hypertension) ? Orders: ibuprofen(ibuprofen 800 mg oral tablet), 1 tab(s), Oral, every 8 hr, 1 tablet every 8 hours as needed for pain not to exceed 3200 mg/day with food or milk, # 30 tab(s), 0 total refill(s), Acute, 12/28/2023, 1 tab(s) Oral every 8 hr,Instr:1 tablet every 8 hours as needed for pain not to exce... Extracted from:Title: Office Clinic Note Author: LULU REESE PA Date: 12/27/22 1.?Right knee pain co rt knee pain and swelling x?2 weeks. Seen at with no relief in symptoms. pain localized to medial joint worse with activity improved by rest. +valgus stress, TTP at medial?joint line, mild effusion.?BLE NVI, strength 5/5, rest of exam unremarkable. tx for MCL sprain with RICE, OTC pain analgesics, and PT referral. Xray ordered will fu results. profile not needed, states he already has one for his knee. RTC and ER precautions given. he will fu with his PCM once remote is approved patient agreed ? Ordered: XR Knee Complete 4+ Views Right Referral Request 2.0 ? 2.?Elevated blood pressure reading without diagnosis of HTN (hypertension) no complaints of HTN, no PMHx of HTN. denies pathak, cp, sob, palpitations, blurry vision, sweating, stress, extreme pain. BP readings taken 4 separate times. twice with automatic, twice manually by the provider readings were as followed 220/110, 200/105, 170/100, and 158/98. Patient very adamant he has no history of HTN. Does report pain and some discomfort with his knee. Exam unremarkable apart from right knee. After long discussion and reviewing previous BP readings, it was determined he will fu with his PCP in 10 days ( will be approved by than) to reevaluate for HTN. PCP name is Vicente according to . ER and RTC precautions given. Patient agreed. ? Orders: ibuprofen(ibuprofen 800 mg oral tablet), 1 tab(s), Oral, every 8 hr, 1 tablet every 8 hours as needed for pain not to exceed 3200 mg/day with food or milk, # 30 tab(s), 0 total refill(s), Acute, 12/28/2023, 1 tab(s) Oral every 8 hr,Instr:1 tablet every 8 hours as needed for pain not to exce... 07/25/2024 Ambulatory Pharmacy Functional Status Combined list of recent functional and cognitive assessments recorded at Department of Defense and Veterans Affairs (VA).VA Functional Crisp Measurement (FIM) Scale: 1 = Total Assistance (Subject = 0% +), 2 = Maximal Assistance (Subject = 25% +), 3 = Moderate Assistance (Subject = 50% +), 4 = Minimal Assistance (Subject = 75% +), 5 = Supervision, 6 = Modified Crisp (Device), 7 = Complete Crisp (Timely, Safely). Assessment Date/Time Source Assessment Type Assessment Skill Assessment Score Assessment Details No data available for this section
--- NOTE | 2024-07-25 10:15 | MHC.OFFVIS ---
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 02/13/2024 home sleep study results showed mild obstructive sleep apnea with AHI 6.8 per hour O2 albert 84% with SpO2 under 90% x2 0.5 minutes, and SpO2 under 88% for 1.1 minute of study time, average SpO2 96%. Sleep apnea occurred in supine, right, and less so in left side sleep position. Following the sleep study, patient has started APAP 5-20 cm H2O with EPR 1. He states it took him a little bit of time to get used to using his APAP machine, however, he is now more used to it. Though, occasionally he does need to take the mask off and take a breath. He feels as though he is sleeping better. His tells him that he is breathing better at night. He states he does need a new PAP supplies, he was unaware that the filters needed to be changed. He is cleaning the device, equipment, and using distilled water. He has started to actively try to lose weight and started losartan for blood pressure control. Blood pressure is improved today, though still elevated at 144/100 today. He states he has a follow-up with his PCP next week. Due to his position is a [employer], which requires him to be on-call at all times and do an occasional overnight shift or be away for extended time for training, patient may not be able to use his APAP device consistently. He does also note that when his duties are more emotionally taxing, he may not be able to sleep as well and use his device for the entirety of the 4 hours. He has started to prioritize taking at least 2 days off per month. He has and identified support system for himself. [facility] Compliance Report Usage 06/23/2024 - 07/22/2024 Usage days 20/30 days (67%) >= 4 hours 20 days (67%) < 4 hours 0 days (0%) Average usage (days used) 4 hours 8 minutes AirSense 10 AutoSet Serial number [id number] Mode AutoSet Min Pressure 5 cmH2O Max Pressure 20 cmH2O EPR Fulltime EPR level 1 Response Standard Therapy Pressure - cmH2O Median: 5.0 95th percentile: 6.8 Maximum: 7.8 Leaks - L/min Median: 0.7 95th percentile: 15.4 Maximum: 37.4 Events per hour AI: 0.3 HI: 0.4 AHI: 0.7 PFSH Medical History Degenerative arthritis of lumbar spine Surgical History S/P shoulder surgery Family History Father Diabetes Mother No problems noted. 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 Current occupation: , right hand dominant Cognitive needs: No Hearing needs: No Vision needs: No Physical Exam Vital Signs: Last Vital Signs Pulse 70 07/25/24 10:16 BP 144/100 H 07/25/24 10:16 Pulse Ox 100 07/25/24 10:16 Oxygen Delivery Method Room Air 07/25/24 10:16 BMI result Body Mass Index 31.2 Const General: no acute distress Orientation/consciousness: patient oriented x3 Resp Effort & Inspection: able to speak in complete sentences Cardio Heart sounds: S1 normal heart sound present and S2 normal heart sound present Neuro General: patient oriented x3 Psych Mental Status: mental status grossly normal Speech and movement: Clear speech present Attitude: cooperative Assessment & Plan Assessment & Plan (1) Mild obstructive sleep apnea: Comment: 02/13/2024 HST: AHI 6.8 per hour O2 albert 84% with SpO2 under 90% x2 0.5 minutes, and SpO2 under 88% for 1.1 minute of study time, average SpO2 96% Code(s): G47.33 - Obstructive sleep apnea (adult) (pediatric) Category: Medical (2) HTN (hypertension): Code(s): I10 - Essential (primary) hypertension Category: Medical Plan Mild ANGELICA in setting of hypertension: Continue APAP 5-20 cm H2O nightly greater than 4 hours, as patient has had good clinical effect from use, as well as reduction in residual AHI. Will adjust EPR setting from 1 to 3, in hopes this lessens episodes of needing to take PAP mask off to take a breath. Patient may have periods where he is unable to use his APAP device, due to active duty requirements. Continue to clean PAP supplies routinely. Patient advised to request new CPAP supplies from [facility]. Continue to use distilled water in CPAP water reservoir. Advised of typical Pap supply replacement schedule- filters every 2 weeks, mask every 1-3 months depending on mask type, water reservoir in tubing every 6 months. Continue to optimize sleep hygiene as best as possible. The continue to optimize cardiovascular risk factors, including weight loss efforts. Follow-up with PCP as scheduled- advised to discuss optimizing losartan dose, ideal BP goal under 130/80. Pt to follow-up in 6 months or sooner prn. Coding Level of Care Code Est Pt Level 4 (53985) Diagnoses Mild obstructive sleep apnea G47.33 HTN (hypertension) I10
[2024-07-25 10:16] VITALS: BP 144/100; PULSE 70; O2SAT 100; BMI 31.2
== END 2024-07-25 11:02 | disposition home or self-care (01) ==
PROVIDERS: PCP Nurse Practitioner Family; Visit Provider Nurse Practitioner Family
DX: G47.33 Obstructive sleep apnea (adult) (pediatric) (principal); I10 Essential (primary) hypertension
CPT/HCPCS: 99214

== ENCOUNTER → 2024-07-25 09:59 | Outpatient (BNVA) | payer OTHER, SELFPAY | PROVIDERS: PCP Nurse Practitioner Family; Visit Provider Nurse Practitioner Family | DX: G47.33 Obstructive sleep apnea (adult) (pediatric) (principal); I10 Essential (primary) hypertension | CPT/HCPCS: 99212 ==

== ENCOUNTER 2024-08-02 06:56 | Outpatient (REF) | payer OTHER, SELFPAY ==
[2024-08-02 11:18] LABS: Alanine Aminotransferase 30 U/L (0-40); Albumin Level 4.4 g/dL (3.5-5.0); Alkaline Phosphatase 77 U/L (39-117); Anion Gap 10 (12-20); Aspartate Amino Transferase 39 U/L (5-37); Blood Urea Nitrogen 10 mg/dL (9-16); Carbon Dioxide 29 mmol/L (22-29); Chloride 106 mmol/L (96-108); Cholesterol 203 mg/dL (<200); Estimated Glomerular Filt Rate > 60; Glucose Fasting 86 mg/dL (60-99); HDL Cholesterol 37 mg/dL (>40); LDL Cholesterol Calculated 156 mg/dL (<100); Potassium 3.8 mmol/L (3.3-5.1); Sodium 141 mmol/L (135-145); Total Protein 7.7 g/dL (6.5-8.0); Triglycerides 52 mg/dL (<150)
== END 2024-08-02 06:57 | disposition home or self-care (01) ==
LOC: HO.HMGCLDS 06:56
PROVIDERS: PCP Nurse Practitioner Family; Visit Provider Nurse Practitioner Family
DX: E78.5 Hyperlipidemia, unspecified (principal)
CPT/HCPCS: 36415; 80053; 80061

== ENCOUNTER 2024-08-12 08:01 | Outpatient (AMB) | payer OTHER, SELFPAY ==
--- NOTE | 2024-08-12 08:10 | A.OFFPC_ITS ---
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 History of Present Illness The patient is a 39-year-old male presenting with essential hypertension. He reported only taking losartan once a week despite prescribed recommendations for daily intake. He has experienced occasional headaches and blurred vision, indicating potential inadequately controlled blood pressure. Dyslipidemia has been identified, and a low-dose statin, atorvastatin 10 mg at night, is to be initiated. He has no history of chest pain or shortness of breath. His hypertension has not been monitored consistently at home, but he was encouraged to begin regular monitoring with a target goal of remaining below 140/90 mmHg. 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 - Requests support from a therapist for stress relief. Health Maintenance - Recommended initiation of atorvastatin 10 mg at night for dyslipidemia. Review of Systems - Cardiovascular: Denies chest pain. - Respiratory: Denies shortness of breat h. - Neurological: Reports headaches and bl urred vision. -denies any si or hi Physical Exam General: Cooperative, healthy appearing, comfortable, no acute distress and well developed Orientation: Patient oriented x3 Limitations: No limitations Head: Normal to inspection Ears: Hearing grossly normal bilaterally Nose: Normal external nose present Face and sinus: Normal facial exam Eyes: Appearance normal, both eyes and all related structures Neck: Normal visual inspection and Yes full ROM Respiratory: Normal respiratory effort and able to speak in complete sentences. Clear to auscultation bilaterally Cardiovascular: Regular rate and rhythm. Normal S1 and S2 GI: Normal to inspection. Soft to palpation and nontender Skin: No rashes or lesions noted Neuro: Patient oriented x3 Extremities: Normal to inspection, no edema noted Results Plan - Continue losartan with increased dosin g frequency to daily for essential hypertension management. - Initiate atorvastatin 10 mg daily to m anage dyslipidemia. - Encourage regular blood pressure monit oring at home with a target of <140/90 mmHg. - Refer to behavioral health services to address stress-related concerns and facilitate therapy support. -repeat labs in the next couple of month s Patient was informed and verbally consented to the use of an ambient scribe for clinic note documentation during this visit. Discussion Notes I discussed with the patient the importance of adhering to daily losartan intake for optimal blood pressure management. Initiation of atorvastatin for dyslipidemia was explained, including its role in reducing cardiovascular risk. We reviewed the necessity of regular blood pressure monitoring and maintaining levels below 140/90 mmHg. I addressed the patient?s mental well-being, considering his high-stress occupation, and referred him to behavioral health services for therapeutic support. Follow-up is planned in approximately three to four months. Patient Instructions - Take losartan daily as prescribed. - Start taking atorvastatin 10 mg each n ight for cholesterol management. - Monitor blood pressure regularly at [facility], aiming for readings under 140/90 mmHg. - Seek therapy support through [facility] for stress management. - Schedule a follow-up appointment in th ree to four months. [facility] Medical History Degenerative arthritis of lumbar spine Surgical History S/P shoulder surgery Family History Father Diabetes Mother No problems noted. 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 [id number] - PHQ-9 Billing: Patient declined-do not bill Source: Developed by Drs. Franky Agarwal, Yolande Dorsey, Riaz Li and colleagues, with an educational fior from [employer]. Thrive Questionnaire Date Thrive assessed: 05/01/24 I am a: Patient What is your living situation today?: I have a steady place to live Within the past 12 months, did the food you bought not last and you didn't have the money to get more?: Never true Within the past 12 months, did you worry whether your food would run out before you got money to buy more?: Never true Do you have trouble paying for medicines?: No Do you have trouble getting transportation to medical appointments?: No Do you have trouble paying your heating and electricity bill?: No Do you have trouble taking care of your child, family member or friend?: No Do you have trouble with day-to-day activities such as bathing, preparing meals, shopping, managing finances, etc.?: No Are you currently unemployed and looking for a job?: No Are you interested in more education?: No Please select the resources that you would like help with: None Currently or been in a relationship where the following occur: No concerns reported THRIVE Score: 0 SARAH-7 AMB Questionnaire SARAH-7 Date SARAH - 7 assessed: 05/01/24 Source: Developed by Drs. Franky Agarwal, Yolande Dorsey, Riaz Li and colleagues, with an educational firo from [employer]. Physical exam (Primary Care) Vital Signs: Last Vital Signs Pulse 70 08/12/24 08:11 BP 136/82 08/12/24 08:11 Pulse Ox 98 08/12/24 08:11 BMI result Body Mass Index 31.1 Tobacco/Smoking Status: Tobacco use Status Tobacco use date assessed 10/03/23 08/12/24 08:10 Patient Tobacco Use Status Never used Tobacco 08/12/24 08:10 e-Cigarette/Vaping Use Never Used 08/12/24 08:10 Thrive Assessment: Date of Thrive Assessment Date Thrive assessed 05/01/24 08/12/24 08:10 Currently or been in a relationship where the following occur: No concerns reported Coding Level of Care Code Est Pt Level 3 (49871) Diagnoses HTN (hypertension) I10 Dyslipidemia E78.5 Stress F43.9 Assessment & Plan Assessment & Plan (1) HTN (hypertension): Code(s): I10 - Essential (primary) hypertension Category: Medical (2) Dyslipidemia: Code(s): E78.5 - Hyperlipidemia, unspecified Category: Medical (3) Stress: Code(s): F43.9 - Reaction to severe stress, unspecified Category: Medical Plan . Medications: New atorvastatin 10 mg PO BEDTIME 90 days 90 tabs 0RF
[2024-08-12 08:11] VITALS: BP 136/82; PULSE 70; O2SAT 98; BMI 31.1
== END 2024-08-12 09:07 | disposition home or self-care (01) ==
PROVIDERS: PCP Nurse Practitioner Family; Visit Provider Nurse Practitioner Family
DX: I10 Essential (primary) hypertension (principal); E78.5 Hyperlipidemia, unspecified; F43.9 Reaction to severe stress, unspecified

== ENCOUNTER 2024-08-12 09:22 | Outpatient (REF) | payer OTHER, SELFPAY ==
--- NOTE | ~2024-08-12 | US_ITS ---
CLINICAL HISTORY: R74.8 - Abnormal levels of other serum enzymes US abdomen complete Comparison: None Findings: The visualized pancreas is normal. The aorta and inferior vena cava are normal caliber. The liver is normal in size and echotexture. There is no intrahepatic bile duct dilatation. The common duct is three mm in diameter. The gallbladder is normal. There is no sonographic Linton sign. The main portal vein is antegrade. The right kidney is 10.1 cm in length. The left kidney is 10.8 cm in length. The spleen is normal. No ascites. IMPRESSION: 1. Normal complete abdominal ultrasound. This document has been electronically signed by: Sanjeev Frausto MD on 08/12/2024 12:47:30
--- OUTSIDE RECORDS SUMMARY | 2024-08-12 09:24 | XMS_ITS | Continuity of Care Document ---
Author Name [facility] Organization [facility] Care Team Providers Care Kohinoor Operator Name Role Phone [facility] Unavailable Unavailable Medications Combined list of outpatient medications from Department of Defense and Veterans Affairs facilities.Medications provided include 1) outpatient medications from the last 15 months, and 2) patient-reported medications. Medication Details Route Status Patient Instructions Prescription Expires Prescription Number Last Dispense Date Ordering Provider Order Date Order Qty Source FAMOTIDINE (FAMOTIDINE ), 20MG, TABLET, ORAL, IVAX PHARMACEUT, 100 ea. BOTTLE Active [id number] 2023 60 Pharmac y Data Transac tion Service Facilit y FAMOTIDINE (FAMOTIDINE ), 20MG, TABLET, ORAL, IVAX PHARMACEUT, 100 ea. BOTTLE Active [id number] 4 2023 60 Pharmac y Data Transac [...] mg/day; with food or milk, Pharmacy : [facility] Oral (given by mouth) Complet ed 12/28/2023 30.0 0310C-A F-C-66t h [facility] TRIAMCINOLO NE ACETONIDE (TRIAMCINOL ONE ACETONIDE), 0.1%, CREAM(GM), TOPICAL, [facility] 80 g JAR Active [id number] 4 2023 80 Pharmac y Data Transac [...] Site Reaction Lot Number CVX Code Drug Talent Coordinator Status Comments Source influenza, injectable, quadrivalent 2021 [id number] 158 Seqirus complet ed influenza , injectabl e, quadrival ent 08/21/21 Given Ambulat ory Pharmac y COVID Vaccine Moderna 2020 zzLef t Arm [id number] 207 complet ed COVID Vaccine Moderna 12/25/20 Given Ambulat ory Pharmac y SARS-COV-2 (COVID-19) vaccine, mRNA, spike protein, LNP, preservative free, 100 mcg or 50 mcg dose 2 2020 ALMONACID, KELI S [id number] Moderna US, Inc. (MOD) complet ed SARS-COV- 2 (COVID-19 ) vaccine, mRNA, spike protein, LNP, preservat betzy free, 100 mcg or 50 mcg dose DoD COVID Vaccine Moderna 2020 zzRig ht Arm [id number] 207 complet ed COVID Vaccine Moderna 11/27/20 Given Ambulat ory Pharmac y SARS-COV-2 (COVID-19) vaccine, mRNA, spike protein, LNP, preservative free, 100 mcg or 50 mcg dose 1 2020 ALMONACID, KELI S [id number] 207 Moderna US, Inc. (MOD) complet ed SARS-COV- 2 (COVID-19 ) vaccine, mRNA, spike protein, LNP, preservat betzy free, 100 mcg or 50 mcg dose DoD influenza, injectable, quadrivalent- pf 2020 [id number] 150 Seqirus complet ed influenza , injectabl e, quadrival ent-pf 10/16/20 Given Ambulat ory Pharmac y hepatitis A adult vaccine 2019 [id number] 52 GlaxoSmithKli ne complet ed hepatitis A adult vaccine 04/25/20 Given Ambulat ory Pharmac y poliovirus vaccine, inactivated 2018 10 sanofi pasteur complet ed polioviru s vaccine, inactivat ed 07/20/19 Given Ambulat ory Pharmac y influenza, injectable, quadrivalent 2018 [id number] 158 Seqirus complet ed influenza , [...] diphtheria, acellular pertu is 2015 [id number] 115 CybitsK[employer] ne complet ed tetanus, diphtheri a, acellular pertussis 01/21/16 Given Ambulat ory Pharmac y meningococcal A,C,Y,W-135 (MCV4P) 2015 [id number] 114 sanofi pasteur complet ed meningoco ccal A,C,Y,W-1 35 (MCV4P) 01/21/16 Given Ambulat ory Pharmac y meningococcal polysaccharid e (groups A, C, Y and W-135) diphtheria toxoid conjugate vaccine (MCV4P) 1 2015 [id number] 114 Sanofi Pasteur (PMC) complet ed meningoco ccal polysacch aride (groups A, C, Y and W-135) diphtheri a toxoid conjugate vaccine (MCV4P) DoD tetanus toxoid, reduced diphtheria toxoid, and acellular pertu is vaccine, adsorbed 1 2015 [id number] 115 Virtual Web (SKB) complet ed tetanus toxoid, reduced diphtheri [...] list of: 1) Encounters from [facility] facilities [facility] 2) Encounters from the Department of Defense facilities going back up to 280 months. Location Location Details Encounter Type Encounter Number Reason For Visit Attending Provider ADM Date DC Date Status Disposition Source [employer]([facility]) OUTPATIENT [id number] Notes Entered by: SHEILA KAMARA 04 Feb 2016 0928 ------- ------- ------- ------- -- left knee pain NICHOLAS KAMARA 02/03 Released with Work/Duty Limitations [employer]([facility]) [employer]([facility]) OUTPATIENT [id number] Notes Entered by: IGNACIA MATHEWS 18 Mar 2016 1757 ------- ------- ------- ------- -- referen ce hearing screeni ng IGNACIA MATHEWS 03/18 Released w/o Limitations [employer]([facility] ) 8344R-[id number] AMDS Dental [id number] YVON POWER 08/18 Discharge Disposition: Home or Self Care 8344R-4 39 AMDS 8344R-439 AMDS Between Visit [id number] 06/03 Discharge Disposition: Home or Self Care 8344R-4 39 AMDS 8344R-439 AMDS Between Visit [id number] 07/04 Discharge Disposition: Home or Self Care 8344R-4 39 AMDS Procedures Combined list of: 1) Procedures from Department of Veterans Affairs facilities going back up to thelast 18 months, not all [place] non-surgical procedures are included; 2) All procedures from the Department of Defense facilities. Procedure Procedure Type Code Date Perfomer Comments Sourc e EAR MOLD/INSERT, NOT DISPOSABLE, ANY TYPE 6 [facility] Testing Audiometry [facility] Testing [address] [facility] Ear Protector Attenuation Measurements Ear Protector Attenuation Measurements [address] [facility] Threshold Audiogram (Pure Tone) Threshold Audiogram (Pure Tone) [address] [facility] Ear mold/insert, not disposable, any type [address] [facility] No data available for this section Ambulato ry Pharmacy Social History Combined list of available smoking, tobacco, and other social history from Department of Defense and Veterans Affairs facilities. Social History Type Response Date Comment Sourc e Male 04/21/2022 Ambulatory Pha rmacy This section is an empty soc ial history section. [facility] Sexual Orientation Ambula tory Pharmacy Gender identity Ambulator y Pharmacy Assessment and Plan Combined list of future [...] as needed for pain not to exce... 08/12/2024 Ambulatory Pharmacy Functional Status Combined list of recent functional and cognitive assessments recorded at Department of Defense and Veterans Affairs (VA).VA Functional [place] Measurement (FIM) Scale: 1 = Total Assistance (Subject = 0% +), 2 = Maximal Assistance (Subject = 25% +), 3 = Moderate Assistance (Subject = 50% +), 4 = Minimal Assistance (Subject = 75% +), 5 = Supervision, 6 = Modified O[place] (Device), 7 = Complete [place] (Timely, Safely). Assessment Date/Time Source Assessment Type Assessment Skill Assessment Score Assessment Details No data available for this section
== END 2024-08-12 09:23 | disposition home or self-care (01) ==
LOC: HO.HMGCX 09:22
PROVIDERS: PCP Nurse Practitioner Family; Visit Provider Nurse Practitioner Family
DX: I10 Essential (primary) hypertension (principal); E78.5 Hyperlipidemia, unspecified; F43.9 Reaction to severe stress, unspecified; R74.8 Abnormal levels of other serum enzymes; R17 Unspecified jaundice
CPT/HCPCS: 76700; 99212

== ENCOUNTER → 2024-08-12 09:24 | Outpatient (BNV) | payer OTHER, SELFPAY | PROVIDERS: PCP Nurse Practitioner Family; Visit Provider Radiology Vascular & Interventional Radiology | DX: R74.8 Abnormal levels of other serum enzymes (principal) | CPT/HCPCS: 76700 ==

== ENCOUNTER 2024-10-02 15:15 | Outpatient (REF) | payer OTHER, SELFPAY | END 2024-10-02 15:16 | disposition home or self-care (01) | LOC: HO.SH 15:15 | PROVIDERS: Visit Provider Nurse Practitioner Family | DX: Z01.118 Encounter for examination of ears and hearing with other abnormal findings (principal); H93.13 Tinnitus, bilateral | CPT/HCPCS: 92557; 92567; 92588 ==

== ENCOUNTER 2024-10-30 07:34 | Outpatient (AMB) | payer OTHER, SELFPAY ==
[2024-10-30 07:36] VITALS: BP 130/78; PULSE 84; TEMP 36.6; O2SAT 98; BMI 32.1
--- NOTE | 2024-10-30 07:36 | MHC.PC.OV ---
Vital Signs 10/30/24 07:36 Height 6 ft 1 in Weight 243 lb BMI 32.1 BP 130/78 Blood Pressure Location Lt brachial Position Sitting Pulse 84 Pulse Source Pulse Oximeter Temp 97.9 F Temp Source Oral Pulse Oximetry (%) 98 Oxygen Delivery Method Room Air Intake Visit Reasons: ANNUAL EXAM Intake Note: pt is here for annual exam Food Handler Required: No Accompanied by: Self / Same As Patient Allergies No Known Allergies Allergy (Verified 10/30/24 08:11) Medication List - Last Reconciled 10/30/24 by CAROLINE Courtney- atorvastatin 10 mg PO BEDTIME 90 days betamethasone dipropionate 0.05% topical losartan 25 mg PO DAILY 30 days Tobacco use date assessed: 10/30/24 Dental Screening Dental Screen Date: 10/30/24 Did you have a dental visit in the last 12 months?: Yes Did you have a dental problem in the last 6 months where you did not have access to dental care?: No Was dental information given to patient?: Patient has dentist HPI ANNUAL EXAM HPI Details History of Present Illness The patient is a 39-year-old male presenting for a comprehensive physical examination. He reports that he is in good health, with no current complaints or concerns. He specifically denies experiencing any shortness of breath, chest pain, abdominal pain, blood in stool, constipation, diarrhea, or any sterilization or homicidal thoughts. The patient reports that his blood pressure readings at home are typically around 120s/70s, which is within a normal and healthy range, suggesting effective cardiovascular health management. There are no acute, chronic, or preventative health concerns raised during this visit, illustrating his focus on maintaining overall wellness. Health Maintenance - Obtain laboratory work: patient instructed to complete fasting labs. Social History Review of Systems - Cardiovascular: Denies shortness of breath or chest pain. - Gastrointestinal: Denies abdominal pain, blood in stool, constipation, diarrhea, and any form of involuntary sterilization or homicidal thoughts. Physical Exam General: Cooperative, healthy appearing, comfortable, no acute distress and well developed Orientation: Patient oriented x3 Limitations: No limitations Head: Normal to inspection Ears: Hearing grossly normal bilaterally, cerumen noted left, after ear lavage, TM easily seen Nose: Normal external nose present Face and sinus: Normal facial exam Eyes: Appearance normal, both eyes and all related structures Neck: Normal visual inspection and Yes full ROM Respiratory: Normal respiratory effort and able to speak in complete sentences. Clear to auscultation bilaterally Cardiovascular: Regular rate and rhythm. Normal S1 and S2 GI: Normal to inspection. Soft to palpation and nontender : testicles without lesions, no hernias noted Skin: No rashes or lesions noted Neuro: Patient oriented x3 Extremities: Normal to inspection Results Plan Following the wellness examination, I have decided to maintain all current medications due to the patient's good health status and effective blood pressure management. Laboratory tests have been ordered, with instructions provided to complete them while fasting to ensure accurate results. We aim to use these results to guide any potential adjustments needed in his healthcare. Follow-up care will include reviewing lab findings to ensure continued health optimization. Discussion Notes I discussed with the patient the importance of regular health monitoring and reviewed his blood pressure management, confirming its effectiveness. We agreed to continue his current medications. I explained the need for fasting labs to provide a complete health assessment, emphasizing their role in identifying any future health risks. We also discussed the follow-up plan to ensure that we can promptly address any potential areas of concern identified from his lab work. Patient Instructions - Continue current medications as they are effectively managing health. - Obtain fasting laboratory tests as ordered. - Await results, then schedule a follow-up visit to review and discuss recommendations based on lab outcomes. [facility] Medical History Migraines Degenerative arthritis of lumbar spine Surgical History S/P shoulder surgery Family History Father Diabetes Mother No problems noted. 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 1. Little interest or pleasure in doing things: not at all 2. Feeling down, depressed, or hopeless: not at all 3. Trouble falling or staying asleep, or sleeping too much: not at all 4. Feeling tired or having little energy: not at all 5. Poor appetite or overeating: not at all 6. Feeling bad about yourself - or that you are a failure or have let yourself or your family down: not at all 7. Trouble concentrating on things, such as reading the newspaper or watching television: not at all 8. Moving or speaking so slowly that other people could have noticed. Or the opposite - being so fidgety or restless that you have been moving around a lot more than usual: not at all 9. Thoughts that you would be better off or of hurting yourself in some way: not at all Total score: 0 Depression Screening Interpretation: Negative Depression Screening Done: Yes 08468 - PHQ-9 Billing: Yes Source: Developed by Drs. Franky Agarwal, Yolande Dorsey, Riaz Li and colleagues, with an educational fior from [employer]. Thrive Questionnaire Date Thrive assessed: 10/30/24 I am a: Patient What is your living situation today?: I have a steady place to live Within the past 12 months, did the food you bought not last and you didn't have the money to get more?: Never true Within the past 12 months, did you worry whether your food would run out before you got money to buy more?: Never true Do you have trouble paying for medicines?: No Do you have trouble getting transportation to medical appointments?: No Do you have trouble paying your heating and electricity bill?: No Do you have trouble taking care of your child, family member or friend?: No Do you have trouble with day-to-day activities such as bathing, preparing meals, shopping, managing finances, etc.?: No Are you currently unemployed and looking for a job?: No Are you interested in more education?: No Please select the resources that you would like help with: None Currently or been in a relationship where the following occur: No concerns reported THRIVE Score: 0 AUDIT C Alcohol Use Questionnaire (AUDIT-C) 1. How often do you have a drink containing alcohol?: Never 3. How often do you have six or more drinks on one occasion?: Never Total Score: 0 Score Reviewed/Action Taken: Yes SARAH-7 AMB Questionnaire SARAH-7 Date SARAH - 7 assessed: 10/30/24 Feeling nervous, anxious, or on edge: 0 = Not at all Not being able to stop or control worryin = Not at all Worrying too much about different things: 0 = Not at all Trouble relaxin = Not at all Being so restless that it is hard to sit still: 0 = Not at all Becoming easily annoyed or irritable: 0 = Not at all Feeling afraid as if something awful might happen: 0 = Not at all Total SARAH-7 score (0-4 normal; 5-9 mild; 10-14 moderate; 15-21 severe): 0 Source: Developed by Drs. Franky Agarwal, Yolande Dorsey, Riaz Li and colleagues, with an educational fior from [employer]. SARAH-7 Assessment Billing SARAH-7 Assessment Tool: SARAH-7 Assessment 24877 Physical exam (Primary Care) Vital Signs: Last Vital Signs Temp 97.9 F 10/30/24 07:36 Pulse 84 10/30/24 07:36 BP 130/78 10/30/24 07:36 Pulse Ox 98 10/30/24 07:36 Oxygen Delivery Method Room Air 10/30/24 07:36 BMI result Body Mass Index 32.1 Tobacco/Smoking Status: Tobacco use Status Tobacco use date assessed 10/30/24 10/30/24 07:37 Patient Tobacco Use Status Never used Tobacco 10/30/24 07:37 e-Cigarette/Vaping Use Never Used 10/30/24 07:37 PHQ-9: PHQ-9 Score PHQ-9: Total score 0 10/30/24 07:37 Depression Screening Interpretation: Negative Thrive Assessment: Date of Thrive Assessment Date Thrive assessed 10/30/24 10/30/24 07:37 Currently or been in a relationship where the following occur: No concerns reported Office Procedures Cerumen Removal From which ear canal was the cerumen removed: left Removal: irrigation Notes: patient tolerated procedure well, no complications and ear canal clear 86396-[id number] Irrigation/Lavage Coding Level of Care Code Est Pt Prev Care 18-39y(65701) Diagnoses Physical exam Z00.00 Cerumen debris on tympanic membrane of left ear H61.22 CPT Codes Office Procedure - CPT: 33091-Yum Irrigation/Lavage ([id number]) Additional Codes SARAH-7 Assessment Billing - SARAH-7 Assessment Tool: SARAH-7 Assessment 25680 ([id number]) PHQ-9 - 42216 - PHQ-9 Billing: Yes ([id number]) Assessment & Plan Assessment & Plan (1) Physical exam: Code(s): Z00.00 - Encounter for general adult medical examination without abnormal findings Category: Medical (2) Cerumen debris on tympanic membrane of left ear: Code(s): H61.22 - Impacted cerumen, left ear Category: Medical Plan . Orders: Orders Complete Blood Count Auto Diff Today Z00.00 - Encounter for general adult medical examination without abnormal findings Lipid Panel Today Z00.00 - Encounter for general adult medical examination without abnormal findings Comprehensive [place]. Panel Fast Today Z00.00 - Encounter for general adult medical examination without abnormal findings TSH reflex Free T4 Today Z00.00 - Encounter for general adult medical examination without abnormal findings UA CC w/rflx Micro + Cult Today Z00.00 - Encounter for general adult medical examination without abnormal findings
== END 2024-10-30 08:38 | disposition home or self-care (01) ==
LOC: HO.HMCC 07:35
PROVIDERS: PCP Nurse Practitioner Family; Visit Provider Nurse Practitioner Family
DX: Z00.00 Encounter for general adult medical examination without abnormal findings (principal); H61.22 Impacted cerumen, left ear

== ENCOUNTER → 2024-10-30 07:34 | Outpatient (BNVA) | payer OTHER, SELFPAY | PROVIDERS: PCP Nurse Practitioner Family; Visit Provider Nurse Practitioner Family | DX: Z00.01 Encounter for general adult medical examination with abnormal findings (principal); H61.22 Impacted cerumen, left ear | CPT/HCPCS: 69209; 96127 ==

== ENCOUNTER 2024-11-15 06:37 | Outpatient (REF) | payer OTHER, SELFPAY ==
--- OUTSIDE RECORDS SUMMARY | 2024-11-15 06:39 | XMS_ITS | Continuity of Care Document ---
Author Name [facility] Organization [facility] Care Team Providers Care Finished Yarn Examiner Name Role Phone [facility] Unavailable Unavailable Medications Combined list of outpatient medications from Department of Defense and Veterans Affairs facilities.Medications provided include 1) outpatient medications from the last 15 months, and 2) patient-reported medications. Medication Details Route Status Patient Instructions Prescription Expires Prescription Number Last Dispense Date Ordering Provider Order Date Order Qty Source ibuprofen 800 mg oral tablet 1 tab(s), Oral, every 8 hr, 1 tablet every 8 hours as needed for pain not to exceed 3200 mg/day with food or milk, # 30 tab(s), 0 total refill(s ), Acute, 12/27/23 11:00:00 PM CDT, Pharmacy : [facility] Oral (given by mouth) Complet ed 12/28/20232023 30.0 0310C-A F-C-66t h [facility] Immunizations Combined list of available immunizations from the Department of Defense and Veterans Affairs facilities. Immunization Series Date Given Administered By Site Reaction Lot Number CVX Code Drug Ip Paralegal Status Comments Source influenza, injectable, quadrivalent 2021 [id number] 158 Seqirus complet ed influenza , injectabl e, quadrival ent 08/21/21 Given Ambulat ory Pharmac y COVID Vaccine Moderna 2020 zzLef t Arm [id number] 207 complet ed COVID Vaccine Moderna 12/25/20 Given Ambulat ory Pharmac y COVID Vaccine Moderna 2020 zzRig ht Arm [id number] 207 complet ed COVID Vaccine Moderna 11/27/20 Given Ambulat ory Pharmac y influenza, injectable, quadrivalent- pf 2020 [id number] 150 Seqirus complet ed influenza , injectabl e, quadrival ent-pf 10/16/20 Given Ambulat ory Pharmac y hepatitis A adult vaccine 2019 [id number] Research Journalist ne complet ed hepatitis A adult vaccine 04/25/20 Given Ambulat ory Pharmac y poliovirus vaccine, inactivated 2018 10 sanofi pasteur complet ed polioviru s vaccine, inactivat ed 07/20/19 Given Ambulat ory Pharmac y influenza, injectable, quadrivalent 2018 [id number] 158 Seqirus complet ed influenza , injectabl e, quadrival ent 07/20/19 Given Ambulat ory Pharmac y tetanus, diphtheria, acellular pertu is 2015 [id number] 115 GlaxoSmithKli ne complet ed tetanus, diphtheri a, acellular pertussis 01/21/16 Given Ambulat ory Pharmac y meningococcal A,C,Y,W-135 (MCV4P) 2015 [id number] sanofi pasteur complet ed meningoco ccal A,C,Y,W-1 35 (MCV4P) 01/21/16 Given Ambulat ory Pharmac y Vital Signs Combined list of inpatient and outpatient Vital Signs from Department of Defense and Veterans Affairs, ranging from 12 months to all on record, depending upon the facility. Vital Sign Value Date Comments Source Respiratory Rate 12 br/min 12/27/2022 17:21:00 [id number]-PA-I-66th [employer] Peripheral Pulse Rate 105 bpm 12/27/2022 17:21:00 7061M-SW-L-66th [employer] Mean Arterial Pressure, Calc 118 mm[Hg] 12/27/2022 17:21:00 1400K-KA-W-66th [employer] Systolic Blood Pressure 158 mm[Hg] 12/28/19 23 17:21:00 9224I-FW-K-66th [facility] [employer] Diastolic Blood Pressure 98 mm[Hg] 023 17:21:00 9150Y-FH-C-66th [employer] Blood Pressure Manual Manual 12/27/2022 17:21:00 0494D-HR-C-66th [employer] BP Site Left arm 12/27/2022 17:21:00 5219O-IZ-K-66th [employer] Encounters Combined list of: 1) Encounters from Department of Veterans Affairs facilities going backup to the last 18 months, not all [facility] inpatient encounters are included; 2) Encounters from the Department of Defense facilities going backup to 280 months. Location Location Details Encounter Type Encounter Number Reason For Visit Attending Provider ADM Date DC Date Status Disposition Source 8344R-[id number] AMDS Between Visit [id number] 06/03 Discharge Disposition: Home or Self Care 8344R-4 39 AMDS 8344R-439 AMDS Between Visit [id number] 07/04 Discharge Disposition: Home or Self Care 8344R-4 39 AMDS 8344R-439 AMDS Between Visit [id number] 10/07 Discharge Disposition: Home or Self Care 8344R-4 39 AMDS Procedures Combined list of: 1) Procedures from Department of Veterans Affairs facilities going back up to thelast 18 months, not all [place] non-surgical procedures are included; 2) All procedures from the [facility] facilities. Procedure Procedure Type Code Date Perfomer Comments Sourc e No data available for this section Ambulatory P harmacy Social History Combined list of available smoking, tobacco, and other social history from Department of [facility] and Veterans Affairs facilities. Social History Type Response Date Comment Sourc e Sex Representation Male (finding) 04/21/2022 Un known Organization Sexual Orientation Ambula tory Pharmacy Gender identity Ambulator y Pharmacy Assessment and Plan Combined list of future care activities from Department of [facility] and Veterans [facility] facilities (e.g., assessment and plan notes, appointments, [...] 10 days ( will be approved by [facility]) to reevaluate for HTN. PCP name is [...] as needed for pain not to exce... 11/15/2024 [id number]-XU-W-66th [facility] Functional Status Combined list of recent functional and cognitive assessments recorded at Department of Defense and [facility] ([place] Functional [place] Measurement (FIM) Scale: 1 = Total Assistance (Subject = 0% +), 2 = Maximal Assistance (Subject = 25% +), 3 = Moderate Assistance (Subject = 50% +), 4 = Minimal Assistance (Subject = 75% +), 5 = Supervision, 6 = Modified Epps (Device), 7 = Complete [place] (Timely, Safely). Assessment Date/Time Source Assessment Type Assessment Skill Assessment Score Assessment Details No data available for this section
[2024-11-15 10:06] LABS: MANUAL DIFF FLAG NO
[2024-11-15 10:19] LABS: Basophils Percent Auto 0.4 % (0-2); Eosinophils Absolute Auto 0.1 X10*3/uL (0.0-0.4); Eosinophils Percent Auto 1.5 % (0-4); Hematocrit 44.6 % (42.0-52.0); Hemoglobin 15.4 g/dl (14.0-18.0); Lymphocytes Percent Auto 38.7 % (20-40); Mean Corpuscular HGB Conc 34.5 g/dl (31.0-36.0); Mean Corpuscular Hemoglobin 29.3 pg (27.0-33.0); Mean Platelet Volume 10.8 fL (9.4-12.4); Monocytes Absolute Auto 0.6 X10*3/uL (0.1-1.2); Monocytes Percent Auto 12.1 % (2-11); Neutrophils Absolute Auto 2.5 x10*3/uL (2.0-8.3); Neutrophils Percent Auto 47.3 % (45-73); Platelet Count 264 X10*3/uL (160-400); Red Blood Count 5.25 X10*6/uL (4.60-5.80); Red Cell Distribution Width 12.2 % (11.0-16.0); White Blood Count 5.2 X10*3/uL (4.8-10.8)
[2024-11-15 10:56] LABS: Alanine Aminotransferase 33 U/L (0-40); Albumin Level 4.6 g/dL (3.5-5.0); Alkaline Phosphatase 75 U/L (39-117); Anion Gap 11 (12-20); Aspartate Amino Transferase 35 U/L (5-37); Blood Urea Nitrogen 14 mg/dL (9-16); Calcium 9.6 mg/dL (8.4-10.2); Carbon Dioxide 26 mmol/L (22-29); Chloride 106 mmol/L (96-108); Cholesterol 142 mg/dL (<200); Estimated Glomerular Filt Rate > 60; Glucose Fasting 87 mg/dL (60-99); HDL Cholesterol 33 mg/dL (>40); LDL Cholesterol Calculated 93 mg/dL (<100); Potassium 4.1 mmol/L (3.3-5.1); Sodium 139 mmol/L (135-145); Total Protein 7.8 g/dL (6.5-8.0); Triglycerides 82 mg/dL (<150)
[2024-11-15 11:21] LABS: TSH reflex Free T4 1.62 uIU/mL (0.32-4.0)
[2024-11-15 13:27] LABS: Appearance Urine Clear; Color Urine Yellow; Glucose Urine UA Negative (Negative); Leukocyte Esterase Urine Negative (Negative); Nitrite Urine Negative (Negative); PH 7.5 (5.0-9.0); Specific Gravity - Urine 1.025 (1.005-1.025); Urine Blood Negative (Negative); Urine Ketones Negative (Negative); Urine Protein Negative (Neg-Trace)
== END 2024-11-15 06:38 | disposition home or self-care (01) ==
LOC: HO.HMGCLDS 06:37
PROVIDERS: PCP Nurse Practitioner Family; Visit Provider Nurse Practitioner Family
DX: Z00.00 Encounter for general adult medical examination without abnormal findings (principal); Z13.220 Encounter for screening for lipoid disorders; Z13.29 Encounter for screening for other suspected endocrine disorder; Z13.9 Encounter for screening, unspecified
CPT/HCPCS: 36415; 80053; 80061; 81003; 84443; 85025

== ENCOUNTER 2024-11-27 14:06 | Outpatient (AMB) | payer OTHER, SELFPAY ==
[2024-11-27 14:17] VITALS: BP 122/74; PULSE 68; RESP 18; O2SAT 99; BMI 31.4
--- NOTE | 2024-11-27 14:17 | A.OFFPC_ITS ---
Vital Signs 11/27/24 14:17 Height 6 ft 1 in Weight 238 lb BMI 31.4 BP 122/74 Blood Pressure Location Rt brachial Position Sitting Respiration 18 Pulse 68 Pulse Source Pulse Oximeter Pulse Oximetry (%) 99 Oxygen Delivery Method Room Air Intake Visit Reasons: 4 months f/up Intake Note: Pt is here today for 4 months follow up visit on labs. Allergies No Known Allergies Allergy (Verified 11/27/24 14:19) Tobacco use date assessed: 11/27/24 Dental Screening Dental Screen Date: 10/30/24 HPI 4 months f/up HPI Details Chief Complaint Review of laboratory results History of Present Illness The patient is a 39-year-old male presenting for a follow-up evaluation of laboratory results. The patient previously exhibited elevated bilirubin levels, quantified at 2, which warranted additional laboratory testing to further assess the condition. He denies any symptoms of abdominal pain, and the abdominal ultrasound conducted showed no abnormalities. Abdominal tenderness was also absent. Gilbert's Syndrome is suspected, and the forthcoming lab assessments will seek to confirm or address this diagnosis. Cardiovascular examination revealed clear heart sounds, S1 and S2. Social History Health Maintenance Review of Systems - Abdomen: Denies abdominal pain Physical Exam General: Cooperative, healthy appearing, comfortable, no acute distress and well developed Orientation: Patient oriented x3 Limitations: No limitations Head: Normal to inspection Ears: Hearing grossly normal bilaterally Nose: Normal external nose present Face and sinus: Normal facial exam Eyes: Appearance normal, both eyes and all related structures Neck: Normal visual inspection and Yes full ROM Respiratory: Normal respiratory effort and able to speak in complete sentences. Clear to auscultation bilaterally Cardiovascular: Regular rate and rhythm. S1 and S2 clear GI: Normal to inspection. Soft to palpation and nontender Skin: No rashes or lesions noted Neuro: Patient oriented x3 Extremities: Normal to inspection Results - Labs: Elevated bilirubin at 2 - Imaging: Abdominal ultrasound negative Plan Further laboratory tests have been ordered to investigate elevated bilirubin levels, likely due to Gilbert's Syndrome. As the ultrasound was negative and no abdominal pain or tenderness is present. Cardiovascular assessment revealed clear heart sounds S1 and S2, suggesting no related issues. Monitoring of test results will guide subsequent management plans. Discussion Notes I discussed with the patient the likely diagnosis of Gilbert's Syndrome based on elevated bilirubin levels and will order further labs to confirm this. I explained the benefits of determining the correct diagnosis to avoid unnecessary interventions, given the negative ultrasound and lack of symptomatic complaints. The patient agreed to undergo additional testing. Our follow-up plans will be based on these tests. I have emphasized the importance of monitoring and revisiting if symptoms develop, although currently, signs are indicative of a benign condition like Gilbert's Syndrome. I highlighted the need for patient awareness regarding any changes in symptoms. Patient Instructions - Follow up with ordered laboratory test s as advised - Monitor for any new symptoms or change s - Return for evaluation based on test re sults or earlier if symptoms appear [facility] Medical History Migraines Degenerative arthritis of lumbar spine Surgical History S/P shoulder surgery Family History Father Diabetes Mother No problems noted. 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 Current occupation: , right hand dominant Cognitive needs: No Hearing needs: No Vision needs: No Questionnaire Thrive Questionnaire Date Thrive assessed: 10/30/24 I am a: Patient What is your living situation today?: I have a steady place to live Within the past 12 months, did the food you bought not last and you didn't have the money to get more?: Never true Within the past 12 months, did you worry whether your food would run out before you got money to buy more?: Never true Do you have trouble paying for medicines?: No Do you have trouble getting transportation to medical appointments?: No Do you have trouble paying your heating and electricity bill?: No Do you have trouble taking care of your child, family member or friend?: No Do you have trouble with day-to-day activities such as bathing, preparing meals, shopping, managing finances, etc.?: No Are you currently unemployed and looking for a job?: No Are you interested in more education?: No Please select the resources that you would like help with: None Currently or been in a relationship where the following occur: No concerns reported THRIVE Score: 0 SARAH-7 AMB Questionnaire SARAH-7 Date SARAH - 7 assessed: 10/30/24 Source: Developed by Drs. Franky Agarwal, Yolande Dosrey, Riaz Li and colleagues, with an educational fior from [employer]. Physical exam (Primary Care) Vital Signs: Last Vital Signs Pulse 68 11/27/24 14:17 Resp 18 11/27/24 14:17 BP 122/74 11/27/24 14:17 Pulse Ox 99 11/27/24 14:17 Oxygen Delivery Method Room Air 11/27/24 14:17 BMI result Body Mass Index 31.4 Tobacco/Smoking Status: Tobacco use Status Tobacco use date assessed 11/27/24 11/27/24 14:21 Patient Tobacco Use Status Never used Tobacco 11/27/24 14:19 e-Cigarette/Vaping Use Never Used 11/27/24 14:19 Thrive Assessment: Date of Thrive Assessment Date Thrive assessed 10/30/24 11/27/24 14:19 Currently or been in a relationship where the following occur: No concerns reported Coding Level of Care Code Est Pt Level 3 (95131) Diagnoses Elevated bilirubin R17 Dyslipidemia E78.5 Assessment & Plan Assessment & Plan (1) Elevated bilirubin: Code(s): R17 - Unspecified jaundice Category: Medical (2) Dyslipidemia: Code(s): E78.5 - Hyperlipidemia, unspecified Category: Medical Plan .
--- OUTSIDE RECORDS SUMMARY | 2024-11-27 16:52 | XMS_ITS | Continuity of Care Document ---
Author Name [facility] Organization [facility] Care Team Providers Care Finisher Brush Name Role Phone [facility] Unavailable Unavailable Medications Combined list of outpatient [...] Acute, 12/27/23 11:00:00 PM CDT, Pharmacy : [facility] Oral (given by mouth) Complet ed 12/28/20232023 30.0 0310C-A F-C-66t h [facility] Immunizations Combined list of available immunizations from the Department of Defense and Veterans Affairs facilities. Immunization Series Date Given Administered By Site Reaction Lot Number CVX Code Drug Paper Pattern Folder Status Comments Source influenza, injectable, quadrivalent 2021 [id number] 158 Seqirus complet ed influenza , injectabl e, quadrival ent 08/21/21 Given Ambulat ory Pharmac y COVID Vaccine Moderna 2020 zzLef t Arm [id number] 207 complet ed COVID Vaccine Moderna 12/25/20 Given Ambulat ory Pharmac y COVID Vaccine Moderna 2020 zzRig ht Arm [id number] 207 complet ed COVID Vaccine Moderna 11/27/20 Given Ambulat ory Pharmac y influenza, injectable, quadrivalent- pf 2020 [id number] 150 Seqirus complet ed influenza , injectabl e, quadrival ent-pf 10/16/20 Given Ambulat ory Pharmac y hepatitis A adult vaccine 2019 [id number] 1,2,3 Listo ne complet ed hepatitis A adult vaccine 04/25/20 Given Ambulat ory Pharmac y poliovirus vaccine, inactivated 2018 10 sanofi pasteur complet ed polioviru s vaccine, inactivat ed 07/20/19 Given Ambulat ory Pharmac y influenza, injectable, quadrivalent 2018 [id number] 158 Seqirus complet ed influenza , injectabl e, quadrival ent 07/20/19 Given Ambulat ory Pharmac y tetanus, diphtheria, acellular pertu is 2015 [id number] 115 GlaxoSmithKli ne complet ed tetanus, diphtheri a, acellular pertussis 01/21/16 Given Ambulat ory Pharmac y meningococcal A,C,Y,W-135 (MCV4P) 2015 [id number] sanofi pasteur complet ed meningoco ccal A,C,Y,W-1 35 (MCV4P) 01/21/16 Given Ambulat ory Pharmac y Vital Signs Combined list of inpatient and outpatient Vital Signs from Department of Defense and Veterans Affairs, ranging from 12 months to all on record, depending upon the facility. Vital Sign Value Date Comments Source Respiratory Rate 12 br/min 12/27/2022 17:21:00 1893K-RR-U-66th [facility] Peripheral Pulse Rate 105 bpm 12/27/2022 17:21:00 [id number]-VB-J-66th [facility] Mean Arterial Pressure, Calc 118 mm[Hg] 12/27/2022 17:21:00 8334K-RP-T-66th [facility] Systolic Blood Pressure 158 mm[Hg] 12/28/19 23 17:21:00 0873O-HW-V-66th [facility] Diastolic Blood Pressure 98 mm[Hg] 023 17:21:00 8594Z-WT-V-66th [facility] Blood Pressure Manual Manual 12/27/2022 17:21:00 1958M-XC-V-66th [facility] BP Site Left arm 12/27/2022 17:21:00 2720A-HJ-N-66th [facility] Encounters Combined list of: 1) Encounters from Department of Veterans Affairs facilities going backup to the last 18 months, not all VA inpatient encounters are included; 2) Encounters from the Department of Defense facilities going backup to 280 months. Location Location Details Encounter Type Encounter Number Reason For Visit Attending Provider ADM Date DC Date Status Disposition Source [id number]-[id number] AMDS Between Visit [id number] 06/03 Discharge Disposition: Home or Self Care 8344R-4 39 AMDS 8344R-439 AMDS Between Visit [id number] 07/04 Discharge Disposition: Home or Self Care 8344R-4 39 AMDS 8344R-439 AMDS Between Visit [id number] 10/07 Discharge Disposition: Home or Self Care 8344R-4 39 AMDS Procedures Combined list of: 1) Procedures from Department of Veterans Affairs facilities going back up to thelast 18 months, not all [place] non-surgical procedures are included; 2) All procedures from the [facility] facilities. Procedure Procedure Type Code Date Perfomer Comments Sourc e No data available for this section Ambulatory P harmacy Social History Combined list of available smoking, tobacco, and other social history from Department of [facility] and Veterans Affairs facilities. Social History Type Response Date Comment Sourc e Sex Representation Male (finding) 04/21/2022 Un known Organization Sexual Orientation Ambula tory Pharmacy Gender identity Ambulator y Pharmacy Assessment and Plan Combined list of future care activities from Department of [facility] and [facility] facilities (e.g., assessment and plan notes, [...] 10 days ( will be approved by [facility]) to reevaluate for HTN. PCP name [...] as needed for pain not to exce... 11/27/2024 [id number]-[id number] [facility] Functional Status Combined list of recent functional and cognitive assessments recorded at Department of Defense and Veterans Affairs ([place]).VA Functional [place] Measurement (FIM) Scale: 1 = Total Assistance (Subject = 0% +), 2 = Maximal Assistance (Subject = 25% +), 3 = Moderate Assistance (Subject = 50% +), 4 = Minimal Assistance (Subject = 75% +), 5 = Supervision, 6 = Modified [place] (Device), 7 = Complete [place] (Timely, Safely). Assessment Date/Time Source Assessment Type Assessment Skill Assessment Score Assessment Details No data available for this section
== END 2024-11-27 14:42 | disposition home or self-care (01) ==
LOC: HO.HMCC 14:07
PROVIDERS: PCP Nurse Practitioner Family; Visit Provider Nurse Practitioner Family
DX: R17 Unspecified jaundice (principal); E78.5 Hyperlipidemia, unspecified

== ENCOUNTER → 2024-11-27 14:06 | Outpatient (BNVA) | payer OTHER, SELFPAY | PROVIDERS: PCP Nurse Practitioner Family; Visit Provider Nurse Practitioner Family | DX: R17 Unspecified jaundice (principal); E78.5 Hyperlipidemia, unspecified | CPT/HCPCS: 99212 ==

== ENCOUNTER 2024-12-30 10:58 | Outpatient (AMB) | payer OTHER, SELFPAY ==
[2024-12-30 11:04] VITALS: BMI 31.4
--- NOTE | 2024-12-30 11:04 | A.OFFVIS_ITS ---
Vital Signs 12/30/24 11:04 Height 6 ft 1 in Weight 238 lb BMI 31.4 Intake Visit Reasons: OV-Right knee arthritis-6 month follow up Intake Note: Raghav is a 38 year old male who presents today for a follow up of his Right Knee Medial Meniscus Tear, at his last visit a Menisectomy was discussed. Our current goal is to complete the walking portion of the fitness test next year. Patient reports that he is doing well, the knee is doing better however he is still unable to complete the Running and jogging portion of the PT. Allergies No Known Allergies Allergy (Verified 12/30/24 11:08) HPI HPI OV-Right knee arthritis-6 month follow up: Details: Raghav is a 38 year old male who presents today for a follow up of his Right Knee Medial Meniscus Tear, at his last visit a Menisectomy was discussed. Our current goal is to complete the walking portion of the fitness test next year. Patient reports that he is doing well, the knee is doing better however he is still unable to complete the Running and jogging portion of the PT. [facility] Medical History Migraines Degenerative arthritis of lumbar spine Surgical History S/P shoulder surgery Family History Father Diabetes Mother No problems noted. 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 There is medial TTP and a mildly + Steinmen's and a trace effusion. Assessment & Plan Assessment & Plan (1) Arthritis of right knee: Code(s): M17.11 - Unilateral primary osteoarthritis, right knee Category: Medical Plan: This is a 39-year-old with medial compartment osteoarthritis. He is doing well and completing all his required activities in the except for running. I think it is reasonable that he abstain from running. This condition is not going to allow him to consistently run in the risk of it worsening will be significantly higher if he does so. I discussed this with him. He can see me back in 1 year. Coding Level of Care Code Est Pt Level 3 (46075) Diagnoses Arthritis of right knee M17.11
--- OUTSIDE RECORDS SUMMARY | 2024-12-30 11:43 | XMS_ITS | Continuity of Care Document ---
Author Name [facility] Organization [facility] Care Team Providers Care Pr Internship Name Role Phone [facility] Unavailable Unavailable Medications Combined list of outpatient medications from Department of Defense and Veterans Affairs facilities.Medications provided include 1) outpatient medications from the last 15 months, and 2) patient-reported medications. Medication Details Route Status Patient Instructions Prescription Expires Prescription Number Last Dispense Date Ordering Provider Order Date Order Qty Source FAMOTIDINE (FAMOTIDINE ), 20MG, TABLET, ORAL, IVAX PHARMACEUT, 100 ea. BOTTLE Active [id number] 2023 60 Pharmac y Data Transac tion Service Facilit y FAMOTIDINE (FAMOTIDINE ), 20MG, TABLET, ORAL, IVAX PHARMACEUT, 100 ea. BOTTLE Active [id number] 4 2023 60 Pharmac y Data Transac tion Service Facilit y ibuprofen 800 mg oral tablet 1 tab(s), Oral, every 8 hr, 1 tablet every 8 hours as needed for pain not to exceed 3200 mg/day with food or milk, # 30 tab(s), 0 total refill(s ), Acute, 12/27/23 11:00:00 PM CDT, Pharmacy : [facility] Oral (given by mouth) Complet ed 12/28/20232023 30.0 0310C-A F-C-66t h [facility] TRIAMCINOLO NE ACETONIDE (TRIAMCINOL ONE ACETONIDE), 0.1%, CREAM(GM), TOPICAL, [facility] 80 g JAR Active [id number] 4 2023 80 Pharmac y Data Transac [...] Site Reaction Lot Number CVX Code Drug Physician Ophthalmologist Status Comments Source influenza, injectable, quadrivalent 2021 [id number] 158 Seqirus complet ed influenza , injectabl e, quadrival ent 08/21/21 Given Ambulat ory Pharmac y COVID Vaccine Moderna 2020 zzLef t Arm [id number] 207 complet ed COVID Vaccine Moderna 12/25/20 Given Ambulat ory Pharmac y SARS-COV-2 (COVID-19) vaccine, mRNA, spike protein, LNP, preservative free, 100 mcg or 50 mcg dose 2 2020 ALMONACID, KELI S [id number] Moderna US, Inc. (MOD) complet ed SARS-COV- 2 (COVID-19 ) vaccine, mRNA, spike protein, LNP, preservat betzy free, 100 mcg or 50 mcg dose DoD COVID Vaccine Moderna 2020 zzCecy ht Arm [id number] complet ed COVID Vaccine Moderna 11/27/20 Given Ambulat ory Pharmac y SARS-COV-2 (COVID-19) vaccine, mRNA, spike protein, LNP, preservative free, 100 mcg or 50 mcg dose 1 2020 ALMONACID, KELI S [id number] 207 Moderna US, Inc. (MOD) complet ed SARS-COV- 2 (COVID-19 ) vaccine, mRNA, spike protein, LNP, preservat betzy free, 100 mcg or 50 mcg dose DoD influenza, injectable, quadrivalent- pf 2020 [id number] 150 Seqirus complet ed influenza , injectabl e, quadrival ent-pf 10/16/20 Given Ambulat ory Pharmac y hepatitis A adult vaccine 2019 [id number] 52 GlaxoSmithKli ne complet ed hepatitis A adult vaccine 04/25/20 Given Ambulat ory Pharmac y poliovirus vaccine, inactivated 2018 10 sanofi pasteur complet ed polioviru s vaccine, inactivat ed 07/20/19 Given Ambulat ory Pharmac y influenza, injectable, quadrivalent 2018 [id number] 158 Seqirus complet ed influenza , [...] ory Pharmac y meningococcal A,C,Y,W-135 (MCV4P) 2015 [id number] 114 sanofi pasteur complet ed meningoco ccal A,C,Y,W-1 35 (MCV4P) 01/21/16 Given Ambulat ory Pharmac y meningococcal polysaccharid e (groups A, C, Y and W-135) diphtheria toxoid conjugate vaccine (MCV4P) 1 2015 [id number] 114 Sanofi Pasteur (PMC) complet ed meningoco ccal polysacch aride (groups A, C, Y and W-135) diphtheri a toxoid conjugate vaccine (MCV4P) DoD tetanus toxoid, reduced diphtheria toxoid, and acellular pertu is vaccine, adsorbed 1 2015 [id number] 115 Free[place] (SKB) complet ed tetanus toxoid, reduced diphtheri a toxoid, and acellular pertussis vaccine, adsorbed DoD Vital Signs Combined list of inpatient and outpatient Vital Signs from Department of Defense and Veterans Affairs, ranging from 12 months to all on record, depending upon the facility. Vital Sign Value Date Comments Source Respiratory Rate 12 br/min 12/27/2022 17:21:00 7575V-XK-S-66th [facility] Peripheral Pulse Rate 105 bpm 12/27/2022 17:21:00 [id number]-VP-G-66th [facility] Mean Arterial Pressure, Calc 118 mm[Hg] 12/27/2022 17:21:00 4832K-XY-D-66th [facility] Systolic Blood Pressure 158 mm[Hg] 12/28/19 17:21:00 1565I-EL-S-66th [facility] Diastolic Blood Pressure 98 mm[Hg] 023 17:21:00 0574H-GY-W-66th [facility] Blood Pressure Manual Manual 12/27/2022 17:21:00 7440T-VU-O-66th [facility] BP Site Left arm 12/27/2022 17:21:00 6083A-NY-P-66th [facility] [employer] Encounters Combined list of: 1) Encounters from Department of Veterans Affairs facilities going backup to the last 18 months, not all [place] inpatient encounters are included; 2) Encounters from the Department of [employer] facilities going backup to 280 months. Location Location Details Encounter Type Encounter Number Reason For Visit Attending Provider ADM Date DC Date Status Disposition Source [employer] [employer]([facility]) OUTPATIENT [id number] Notes Entered by: SHEILA KAMARA 04 Feb 2016 0928 ------- ------- ------- ------- -- left knee pain NICHOLAS KAMARA 02/03 Released with Work/Duty Limitations [employer]([facility]) [employer]([facility]) OUTPATIENT [id number] Notes Entered by: IGNACIA MATHEWS 18 Mar 2016 1757 ------- ------- ------- ------- -- referen ce hearing screeni ng IGNACIA MATHEWS 03/18 Released w/o Limitations [employer]([facility] ) 8344R-439 AMDS Between Visit [id number] 06/03 Discharge Disposition: Home or Self Care 8344R-4 39 AMDS 8344R-439 AMDS Between Visit [id number] 07/04 Discharge Disposition: Home or Self Care 8344R-4 39 AMDS 8344R-439 AMDS Between Visit [id number] 10/07 Discharge Disposition: Home or Self Care 8344R-4 39 AMDS Procedures Combined list of: 1) Procedures from Department [facility] facilities going back up to thelast 18 months, not all [place] non-surgical procedures are included; 2) All procedures from the Department of Defense facilities. Procedure Procedure Type Code Date Perfomer Comments Sour e No data available for this section Ambulato ry Pharmacy EAR MOLD/INSERT, NOT DISPOSABLE, ANY TYPE 6 [facility] Testing Audiometry Group Testing [id number] 6 IGNACIA MATHEWS [facility] Ear Protector Attenuation Measurements Ear Protector Attenuation Measurements 18627 6 IGNACIA MATHEWS [facility] Threshold Audiogram (Pure Tone) Threshold Audiogram (Pure Tone) 70629 6 IGNACIA MATHEWS [facility] Ear mold/insert, not disposable, any type 6 IGNACIA MATHEWS [facility] Social History Combined list of available smoking, tobacco, and other social history from Department of Defense and Veterans Affairs facilities. Social History Type Response Date Comment [facility] e Sex Representation Male (finding) 04/21/2022 Un known Organization Sexual Orientation Ambula tory Pharmacy Gender identity Ambulator y Pharmacy This section is an empty social history section. [facility] Assessment and Plan Combined list of future [...] he will fu with his PCM once [facility] is approved patient agreed ? Ordered: XR [...] 10 days ( will be approved by [facility]) to reevaluate for HTN. PCP name is Vicente according to DANNY. ER and RTC precautions given. Patient agreed. ? Orders: ibuprofen(ibuprofen 800 mg oral tablet), 1 tab(s), Oral, every 8 hr, 1 tablet every 8 hours as needed for pain not to exceed 3200 mg/day with food or milk, # 30 tab(s), 0 total refill(s), Acute, 12/28/2023, 1 tab(s) Oral every 8 hr,Instr:1 tablet every 8 hours as needed for pain not to exce... 12/30/2024 [id number]-M-[id number] [facility] Functional Status Combined list of recent functional and cognitive assessments recorded at Department of Defense and Veterans Affairs (VA).VA Functional [place] Measurement (FIM) Scale: 1 = Total Assistance (Subject = 0% +), 2 = Maximal Assistance (Subject = 25% +), 3 = Moderate Assistance (Subject = 50% +), 4 = Minimal Assistance (Subject = 75% +), 5 = Supervision, 6 = Modified [place] (Device), 7 = Complete [place] (Timely, Safely). Assessment Date/Time Source Assessment Type Assessment Skill Assessment Score Assessment Details No data available for this section
== END 2024-12-30 11:44 | disposition home or self-care (01) ==
LOC: HO.HOS 10:59
PROVIDERS: PCP Nurse Practitioner Family; Visit Provider Orthopaedic Surgery
DX: M17.11 Unilateral primary osteoarthritis, right knee (principal)
CPT/HCPCS: 99213

== ENCOUNTER → 2024-12-30 10:58 | Outpatient (BNVA) | payer OTHER, SELFPAY | PROVIDERS: PCP Nurse Practitioner Family; Visit Provider Orthopaedic Surgery | DX: M17.11 Unilateral primary osteoarthritis, right knee (principal); S83.241D Other tear of medial meniscus, current injury, right knee, subsequent encounter; X58.XXXD Exposure to other specified factors, subsequent encounter | CPT/HCPCS: 99212 ==

== ENCOUNTER 2025-01-13 13:24 | Outpatient (REF) | payer OTHER, SELFPAY ==
--- OUTSIDE RECORDS SUMMARY | 2025-01-13 14:30 | XMS_ITS | Continuity of Care Document ---
Author Name [facility] Organization [facility] Care Team Providers Care Orchestrator Name Role Phone [facility] Unavailable Unavailable Medications Combined list of outpatient medications from Department of Defense and Veterans Affairs facilities.Medications provided include 1) outpatient medications from the last 15 months, and 2) patient-reported medications. Medication Details Route Status Patient Instructions Prescription Expires Prescription Number Last Dispense Date Ordering Provider Order Date Order Qty Source FAMOTIDINE (FAMOTIDINE ), 20MG, TABLET, ORAL, IVAX PHARMACEUT, 100 ea. BOTTLE Active [id number] 2023 60 Pharmac y Data Transac tion Service Facilit y FAMOTIDINE (FAMOTIDINE ), 20MG, TABLET, ORAL, IVAX PHARMACEUT, 100 ea. BOTTLE Active [id number] 4 2023 60 Pharmac y Data Transac tion Service Facilit y ibuprofen 800 mg oral tablet 1 tab(s), Oral, every 8 hr, 1 tablet every 8 hours as needed for pain not to exceed 3200 mg/day with food or milk, # 30 tab(s), 0 total refill(s ), Acute, 12/27/23 11:00:00 PM CDT, Pharmacy : [facility] (given by mouth) Complet ed 12/28/20232023 30.0 0310C-A F-C-66t h [facility] TRIAMCINOLO NE ACETONIDE (TRIAMCINOL ONE ACETONIDE), 0.1%, CREAM(GM), TOPICAL, [facility] 80 g JAR Active [id number] 4 2023 80 Pharmac y Data Transac [...] Site Reaction Lot Number CVX Code Drug Retort Unloader Status Comments Source influenza, injectable, quadrivalent 2021 [id number] 158 Seqirus complet ed influenza , injectabl e, quadrival ent 08/21/21 Given Ambulat ory Pharmac y COVID Vaccine Moderna 2020 zzLef t Arm [id number] complet ed COVID Vaccine Moderna 12/25/20 Given Ambulat ory Pharmac y SARS-COV-2 (COVID-19) vaccine, mRNA, spike protein, LNP, preservative free, 100 mcg or 50 mcg dose 2 2020 ALMONACID, KELI S [id number] 207 Moderna US, Inc. (MOD) complet ed SARS-COV- 2 (COVID-19 ) vaccine, mRNA, spike protein, LNP, preservat betzy free, 100 mcg or 50 mcg dose DoD COVID Vaccine Moderna 2020 zzCecy ht Arm [id number] complet ed COVID Vaccine Moderna 11/27/20 Given Ambulat ory Pharmac y SARS-COV-2 (COVID-19) vaccine, mRNA, spike protein, LNP, preservative free, 100 mcg or 50 mcg dose 1 2020 ALMONACID, KELI S [id number] 207 Moderna US, Inc. (MOD) complet ed SARS-COV- 2 (COVID-19 ) vaccine, mRNA, spike protein, LNP, preservat betzy free, 100 mcg or 50 mcg dose DoD influenza, injectable, quadrivalent- pf 2020 [id number] 150 Seqirus complet ed influenza , injectabl e, quadrival ent-pf 10/16/20 Given Ambulat ory Pharmac y hepatitis A adult vaccine 2019 [id number] 52 GlaxoSmithKli ne complet ed hepatitis A adult vaccine 04/25/20 Given Ambulat ory Pharmac y poliovirus vaccine, inactivated 2018 10 sanofi pasteur complet ed polioviru s vaccine, inactivat ed 07/20/19 Given Ambulat ory Pharmac y influenza, injectable, quadrivalent 2018 [id number] 158 Seqirus complet ed influenza , [...] ory Pharmac y meningococcal A,C,Y,W-135 (MCV4P) 2015 [id number] sanofi pasteur complet ed meningoco ccal A,C,Y,W-1 35 (MCV4P) 01/21/16 Given Ambulat ory Pharmac y meningococcal polysaccharid e (groups A, C, Y and W-135) diphtheria toxoid conjugate vaccine (MCV4P) 1 2015 [id number] Sanofi Pasteur (PMC) complet ed meningoco ccal polysacch aride (groups A, C, Y and W-135) diphtheri a toxoid conjugate vaccine (MCV4P) DoD tetanus toxoid, reduced diphtheria toxoid, and acellular pertu is vaccine, adsorbed 1 2015 [id number] 115 DropThought (SKB) complet ed tetanus toxoid, reduced diphtheri a toxoid, and acellular pertussis vaccine, adsorbed DoD Vital Signs Combined list of inpatient and outpatient Vital Signs from Department of Defense and Veterans Affairs, ranging from 12 months to all on record, depending upon the facility. Vital Sign Value Date Comments Source Respiratory Rate 12 br/min 12/27/2022 17:21:00 1209X-YP-G-66th [facility] Peripheral Pulse Rate 105 bpm 12/27/2022 17:21:00 3707D-JH-K-66th [facility] Mean Arterial Pressure, Calc 118 mm[Hg] 12/27/2022 17:21:00 3995O-DJ-X-66th [facility] Systolic Blood Pressure 158 mm[Hg] 12/28/19 17:21:00 1378C-YO-T-66th [facility] Diastolic Blood Pressure 98 mm[Hg] 023 17:21:00 4973M-DS-K-66th [facility] Blood Pressure Manual Manual 12/27/2022 17:21:00 4176D-ED-O-66th [facility] BP Site Left arm 12/27/2022 17:21:00 6913U-EH-Z-66th [facility] Encounters Combined list of: 1) Encounters from Department of Veterans Affairs facilities going backup to the last 18 months, not all VA inpatient encounters are included; 2) Encounters from the Department of Defense facilities going backup to 280 months. Location Location Details Encounter Type Encounter Number Reason For Visit Attending Provider ADM Date DC Date Status Disposition Source [facility]) OUTPATIENT [id number] Notes Entered by: SHEILA KAMARA 04 Feb 2016 0928 ------- ------- ------- ------- -- left knee pain NICHOLAS KAMARA 02/03 Released with Work/Duty Limitations [facility]) [facility]) OUTPATIENT [id number] Notes Entered by: IGNACIA MATHEWS 18 Mar 2016 1757 ------- ------- ------- ------- -- referen ce hearing screeni ng IGNACIA MATHEWS 03/18 Released w/o Limitations [facility] ) 8344R-439 AMDS Between Visit [id number] 06/03 Discharge Disposition: Home or Self Care 8344R-4 39 AMDS 8344R-439 AMDS Between Visit [id number] 07/04 Discharge Disposition: Home or Self Care 8344R-4 39 AMDS 8344R-439 AMDS Between Visit [id number] 10/07 Discharge Disposition: Home or Self Care 8344R-4 39 AMDS 8344R-439 AMDS Between Visit [id number] 12/315 Discharge Disposition: Home or Self Care 8344R-4 39 AMDS Procedures Combined list of: 1) Procedures from Department of Veterans Affairs facilities going [facility], not all VA non-surgical procedures are included; 2) All procedures from the Department of Defense facilities. Procedure Procedure Type Code Date Perfomer Comments Sour e No data available for this section Ambulato ry Pharmacy EAR MOLD/INSERT, NOT DISPOSABLE, ANY TYPE 6 [facility] Testing Audiometry Group Testing 75783 6 IGNACIA MATHEWS [facility] Ear Protector Attenuation Measurements Ear Protector Attenuation Measurements 56498 6 IGNACIA MATHEWS [facility] Threshold Audiogram (Pure Tone) Threshold Audiogram (Pure Tone) 29325 6 IGNACIA MATHEWS [facility] Ear mold/insert, not disposable, any type 6 IGNACIA MATHEWS [facility] Social History Combined list of available smoking, tobacco, and other social history from Department of Defense and Veterans Affairs facilities. Social History Type Response Date Comment Sourc e Sex Representation Male (finding) 04/21/2022 Un known Organization Sexual Orientation Ambula tory Pharmacy Gender identity Ambulator y Pharmacy This section is an empty social history section. [facility] Assessment and Plan Combined list of future care activities from Department of Defense and Veterans Affairs facilities (e.g., assessment and plan notes, appointments, orders, and referrals). Additional future care activities may be listed in the Plan of Care section. Result Assessment and Plan Date Source Assessment and Plan Extracted from:Title : Profile form And Supporting Docs Author: JOSEFINA SEN Date: 12/31/24 From: JOSEFINA SEN To: MARILOU CHO; Sent: 12/31/24 15:02:22 EDT Subject: Profile form And Supporting Docs Caller Name: Raghav Campos; Caller Number: H [phone] , M [phone] profile sheet and support documentation?from?PCM?was received for member. Please review documentation, initiate AF 469 in ASIMS, and complete any additional requirements for potential duty/ mobility limitations. ?4A0 /??Health Services Management Addendum by MARILOU CHO on January 01, 2025 09:48:14 EDT From: MARILOU CHO To: GUEVARA SANTAMARIA MD; Sent: 01/01/25 09:48:14 EDT Subject: FW: Profile form And Supporting Docs Caller Name: Raghav Campos; Caller Number: H [phone] , M [phone] generated. Goal to complete walking portion of PT test this year - discussed surgery at visit. Please review, ma'am. Extracted from:Title: Office Clinic Note Author: LULU [...] he will fu with his PCM once [facility] is approved patient agreed ? Ordered: XR [...] 10 days ( will be approved by [facility]) to reevaluate for HTN. PCP name is [...] as needed for pain not to exce... 01/13/2025 8344R-439 AMDS Assessment and Plan Extracted from:Title : Profile form And Supporting Docs Author: JOSEFINA SEN Date: 12/31/24 From: JOSEFINA SEN To: MARILOU CHO; Sent: 12/31/24 15:02:22 EDT Subject: Profile form And Supporting Docs Caller Name: Raghav Campos; Caller Number: H [phone] , M [phone] profile sheet and support documentation?from?PCM?was received for member. Please review documentation, initiate AF 469 in ASIMS, and complete any additional requirements for potential duty/ mobility limitations. ?4A0 /??Health Services Management Addendum by MARILOU CHO on January 01, 2025 09:48:14 EDT From: MARILOU CHO To: GUEVARA SANTAMARIA MD; Sent: 01/01/25 09:48:14 EDT Subject: FW: Profile form And Supporting Docs Caller Name: Raghav Campos; Caller Number: H [phone] , M [phone] generated. Goal to complete walking portion of PT test this year - discussed surgery at visit. Please review, ma'am. Extracted from:Title: Office Clinic Note Author: LULU [...] he will fu with his PCM once [facility] is approved patient agreed ? Ordered: XR [...] 10 days ( will be approved by [facility]) to reevaluate for HTN. PCP name is [...] as needed for pain not to exce... 01/13/2025 1511G-MP-P-66th [facility] Functional Status Combined list of recent functional and cognitive assessments recorded at Department of Defense and Veterans Affairs (VA).VA Functional Superior Measurement (FIM) Scale: 1 = Total Assistance (Subject = 0% +), 2 = Maximal Assistance (Subject = 25% +), 3 = Moderate Assistance (Subject = 50% +), 4 = Minimal Assistance (Subject = 75% +), 5 = Supervision, 6 = Modified Superior (Device), 7 = Complete Superior (Timely, Safely). Assessment Date/Time Source Assessment Type Assessment Skill Assessment Score Assessment Details No data available for this section
[2025-01-13 16:10] LABS: MANUAL DIFF FLAG NO
[2025-01-13 16:14] LABS: Basophils Percent Auto 0.5 % (0-2); Eosinophils Absolute Auto 0.1 X10*3/uL (0.0-0.4); Eosinophils Percent Auto 1.5 % (0-4); Hemoglobin 14.1 g/dl (14.0-18.0); Imm Gran Abs Auto 0.01 X10*3/uL (0.00-0.03); Imm Gran Pct Auto 0.2 % (0.0-0.4); Immature Retic Fraction 7.6 % (2.3-13.4); Lymphocytes Percent Auto 33.9 % (20-40); Mean Corpuscular HGB Conc 34.4 g/dl (31.0-36.0); Mean Corpuscular Hemoglobin 29.3 pg (27.0-33.0); Mean Corpuscular Volume 85.1 fL (80.0-98.0); Mean Platelet Volume 10.4 fL (9.4-12.4); Monocytes Absolute Auto 0.6 X10*3/uL (0.1-1.2); Monocytes Percent Auto 10.7 % (2-11); Neutrophils Absolute Auto 3.1 x10*3/uL (2.0-8.3); Neutrophils Percent Auto 53.2 % (45-73); Platelet Count 269 X10*3/uL (160-400); Red Blood Count 4.82 X10*6/uL (4.60-5.80); Red Cell Distribution Width 11.9 % (11.0-16.0); Retic HGB Equivalent 34.9 pg (30.0-35.0); Reticulocyte Percent 2.1 % (0.5-1.8); Reticulocytes Absolute 0.102 X10*6/uL (0.026-0.095); White Blood Count 5.8 X10*3/uL (4.8-10.8)
[2025-01-13 16:46] LABS: Haptoglobin 123 mg/dL (14-258)
[2025-01-13 16:53] LABS: Alanine Aminotransferase 36 U/L (0-40); Albumin Level 4.6 g/dL (3.5-5.0); Alkaline Phosphatase 74 U/L (39-117); Anion Gap 10 (12-20); Aspartate Amino Transferase 30 U/L (5-37); Bilirubin Direct 0.4 mg/dL (0.0-0.5); Bilirubin Total 1.4 mg/dL (0.0-1.0); Blood Urea Nitrogen 12 mg/dL (9-16); Calcium 9.1 mg/dL (8.4-10.2); Carbon Dioxide 27 mmol/L (22-29); Chloride 106 mmol/L (96-108); Estimated Glomerular Filt Rate > 60; Glucose Random 76 mg/dL (60-115); Lactate Dehydrogenase 261 U/L (118-273); Sodium 139 mmol/L (135-145); Total Protein 7.6 g/dL (6.5-8.0)
== END 2025-01-13 13:25 | disposition home or self-care (01) ==
LOC: HO.HMGCLDS 13:24
PROVIDERS: PCP Nurse Practitioner Family; Visit Provider Nurse Practitioner Family
DX: R17 Unspecified jaundice (principal)
CPT/HCPCS: 36415; 80053; 82248; 83010; 83615; 85025; 85045

== ENCOUNTER 2025-01-22 11:08 | Outpatient (AMB) | payer OTHER, SELFPAY ==
[2025-01-22 11:28] VITALS: BP 160/100; PULSE 64; O2SAT 100; BMI 31.3
--- NOTE | 2025-01-22 11:28 | MHC.OFFVIS ---
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 02/13/2024 home sleep study results showed mild obstructive sleep apnea with AHI 6.8 per hour O2 albert 84% with SpO2 under 90% x2 0.5 minutes, and SpO2 under 88% for 1.1 minute of study time, average SpO2 96%. Sleep apnea occurred in supine, right, and less so in left side sleep position. Since the last visit, patient has not been able to consistently use the CPAP as much as he would like due to obligations. And then when he tries to start using again, it takes a little while to get used to it again. Sometimes when he is using it, he may wake up coughing and he is not sure what that is about. He denies a history of allergies, but does [place] had more nasal congestion. Uses Afrin at times. He is cleaning the device, equipment, and using distilled water. He has started to actively try to lose weight and started losartan for blood pressure control. Blood pressure is improved today, though still elevated at 144/100 today. He states he has a follow-up with his PCP next week. Due to his position is a [employer], which requires him to be on-call at all times and do an occasional overnight shift or be away for extended time for training, patient may not be able to use his APAP device consistently. He does also note that when his duties are more emotionally taxing, he may not be able to sleep as well and use his device for the entirety of the 4 hours. He previously had started to prioritize taking at least 2 days off per month. He has and identified support system for himself, and has now started seeing a therapist for himself to help him optimize his own self-care. He states that his service contract ends in Sep 2025- and he plans to take a 3 month sebatical to try to refocus on his sleep quality. Then he will return to more traditional [employer] duties in [place]. [facility] Compliance Report Usage 10/08/2024 - 01/05/2025 Overall usage 24% Usage greater than 4 hours 22% Average usage (days used) 4 hours and 14 minutes AirSense 10 AutoSet Serial number [id number] Mode AutoSet APAP 5-20 cm H2O with EPR 3 Maximum PAP pressure 10.9 cm H2O Median leaks 1.5 L/min Residual AHI 1.4 per hour [facility] Medical History Migraines Degenerative arthritis of lumbar spine Surgical History S/P shoulder surgery Family History Father Diabetes Mother No problems noted. 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 Current occupation: , right hand dominant Cognitive needs: No Hearing needs: No Vision needs: No Physical Exam Vital Signs: Last Vital Signs Pulse 64 01/22/25 11:28 BP 160/100 H 01/22/25 11:28 Pulse Ox 100 01/22/25 11:28 BMI result Body Mass Index 31.3 Const General: no acute distress Orientation/consciousness: patient oriented x3 Resp Effort & Inspection: able to speak in complete sentences Neuro General: patient oriented x3 Psych Mental Status: mental status grossly normal Speech and movement: Clear speech present Attitude: cooperative Assessment & Plan Assessment & Plan (1) Mild obstructive sleep apnea: Comment: 02/13/2024 HST: AHI 6.8 per hour O2 albert 84% with SpO2 under 90% x2 0.5 minutes, and SpO2 under 88% for 1.1 minute of study time, average SpO2 96% Code(s): G47.33 - Obstructive sleep apnea (adult) (pediatric) Category: Medical (2) HTN (hypertension): Code(s): I10 - Essential (primary) hypertension Category: Medical (3) Seasonal allergies: Code(s): J30.2 - Other seasonal allergic rhinitis Category: Medical Plan Mild ANGELICA in setting of hypertension: Continue APAP 5-20 cm H2O with EPR 3, with goal of using PAP tx nightly greater than 4 hours, as patient has had good clinical effect from use, as well as reduction in residual AHI. Patient may have periods where he is unable to use his APAP device, due to active duty requirements. Trial OTC pressurized saline nasal spray before bed- in hopes this reduces nasal congestion and improves PAP tolerance. If this is ineffective could consider trial of OTC Claritin/loratadine 10 mg daily at bedtime. Future considerations include Flonase or azelastine nasal spray. Continue to clean PAP supplies routinely. Change CPAP supplies regularly- typical Pap supply replacement schedule- filters every 2 weeks, mask every 1-3 months depending on mask type, water reservoir in tubing every 6 months. Continue to use distilled water in CPAP water reservoir. Continue to optimize sleep hygiene as best as possible. 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 The continue to optimize cardiovascular risk factors, including BP/HLD management and weight loss efforts. Continue losartan and statin as ordered by PCP. Note, BP is elevated today, but in general his blood pressure is usually normotensive around 120s/70s. Pt to follow-up in 6 months or sooner prn. Coding Level of Care Code Est Pt Level 4 (32004) Diagnoses Mild obstructive sleep apnea G47.33 HTN (hypertension) I10 Seasonal allergies J30.2
--- OUTSIDE RECORDS SUMMARY | 2025-01-22 12:47 | XMS_ITS | Continuity of Care Document ---
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 Medication Details Route Status Patient Instructions Prescription Expires Prescription Number Last Dispense Date Ordering Provider Order Date Order Qty Source FAMOTIDINE (FAMOTIDINE ), 20MG, TABLET, ORAL, IVAX PHARMACEUT, 100 ea. BOTTLE Active [id number] 2023 60 Pharmac y Data Transac tion Service Facilit y FAMOTIDINE (FAMOTIDINE ), 20MG, TABLET, ORAL, IVAX PHARMACEUT, 100 ea. BOTTLE Active [id number] 4 2023 60 Pharmac y Data Transac tion Service Facilit y ibuprofen 800 mg oral tablet 1 tab(s), Oral, every 8 hr, 1 tablet every 8 hours as needed for pain not to exceed 3200 mg/day with food or milk, # 30 tab(s), 0 total refill(s ), Acute, 12/27/23 11:00:00 PM CDT, Pharmacy : [facility] Radio [facility] Oral (given by mouth) Complet ed 12/28/20232023 30.0 0310C-A F-C-66t h [facility] TRIAMCINOLO NE ACETONIDE (TRIAMCINOL ONE ACETONIDE), 0.1%, CREAM(GM), TOPICAL, [facility] 80 g JAR Active [id number] 4 2023 80 Pharmac y Data Transac [...] Site Reaction Lot Number CVX Code Drug 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 (MOD) complet ed SARS-COV- 2 (COVID-19 ) vaccine, mRNA, spike protein, LNP, preservat betzy free, 100 mcg or 50 mcg dose DoD COVID Vaccine Moderna 2020 zzCecy ht Arm [id number] complet ed COVID Vaccine Moderna 11/27/20 Given Ambulat ory Pharmac y SARS-COV-2 (COVID-19) vaccine, mRNA, spike protein, LNP, preservative free, 100 mcg or 50 mcg dose 1 2020 ALMONACID, KELI S [id number] 207 Moderna US, Inc. (MOD) complet ed SARS-COV- 2 (COVID-19 ) vaccine, mRNA, spike protein, LNP, preservat betzy free, 100 mcg or 50 mcg dose DoD influenza, injectable, quadrivalent- pf 2020 [id number] 150 Seqirus complet ed influenza , injectabl e, quadrival ent-pf 10/16/20 Given Ambulat ory Pharmac y hepatitis A adult vaccine 2019 [id number] GlaxoSmithKli ne complet ed hepatitis A adult vaccine 04/25/20 Given Ambulat ory Pharmac y poliovirus vaccine, inactivated 2018 10 sanofi pasteur complet ed polioviru s vaccine, inactivat ed 07/20/19 Given Ambulat ory Pharmac y influenza, injectable, quadrivalent 2018 [id number] 158 Seqirus complet ed influenza , [...] ory Pharmac y meningococcal A,C,Y,W-135 (MCV4P) 2015 [id number] sanofi pasteur complet ed meningoco ccal A,C,Y,W-1 35 (MCV4P) 01/21/16 Given Ambulat ory Pharmac y meningococcal polysaccharid e (groups A, C, Y and W-135) diphtheria toxoid conjugate vaccine (MCV4P) 1 2015 [id number] 114 Sanofi Pasteur (PMC) complet ed meningoco ccal polysacch aride (groups A, C, Y and W-135) diphtheri a toxoid conjugate vaccine (MCV4P) DoD tetanus toxoid, reduced diphtheria toxoid, and acellular pertu is vaccine, adsorbed 1 2015 [id number] 115 Sientra (SKB) complet ed tetanus toxoid, reduced diphtheri a toxoid, and acellular pertussis vaccine, adsorbed DoD Vital Signs Combined list of inpatient and outpatient Vital Signs from Department of Defense and Veterans Affairs, ranging from 12 months to all on record, depending upon the facility. Vital Sign Value Date Comments Source Respiratory Rate 12 br/min 12/27/2022 17:21:00 8158B-JQ-J-66th [facility] [place] Peripheral Pulse Rate 105 bpm 12/27/2022 17:21:00 8858G-LT-G-66th [facility] Mean Arterial Pressure, Calc 118 mm[Hg] 12/27/2022 17:21:00 1645H-GK-R-66th [facility] Systolic Blood Pressure 158 mm[Hg] 12/28/19 17:21:00 4795P-WY-K-66th [facility] Diastolic Blood Pressure 98 mm[Hg] 023 17:21:00 0240A-FE-V-66th [facility] Blood Pressure Manual Manual 12/27/2022 17:21:00 3554Z-ZL-K-66th [facility] BP Site Left arm 12/27/2022 17:21:00 1711U-XL-J-66th [facility] Encounters Combined list of: 1) Encounters from Department of Veterans Affairs facilities going backup to the last 18 months, not all VA inpatient encounters are included; 2) Encounters from the Department of Defense facilities going backup to 280 months. Location Location Details Encounter Type Encounter Number Reason For Visit Attending Provider ADM Date DC Date Status Disposition Source [employer]([facility]) OUTPATIENT [id number] Notes Entered by: SHEILA KAMARA 04 Feb 2016 0928 ------- ------- ------- ------- -- left knee pain NICHOLAS KAMARA 02/03 Released with Work/Duty Limitations [employer]([facility]) [employer]([facility]) OUTPATIENT [id number] Notes Entered by: IGNACIA MATHEWS 18 Mar 2016 1757 ------- ------- ------- ------- -- referen ce hearing screeni ng IGNACIA MATHEWS 03/18 Released w/o Limitations [employer]([facility] ) 8344R-[id number] AMDS Between Visit [id number] 10/07 Discharge Disposition: Home or Self Care 8344R-4 39 AMDS 8344R-439 AMDS Between Visit [id number] 12/31 Discharge Disposition: Home or Self Care 8344R-4 39 AMDS 8344R-439 AMDS Preclinic [id number] 01/17 8344R-4 39 AMDS 8344R-439 AMDS Outpatient [id number] GUEVARA LAZO 01/18 Discharge Disposition: Home or Self Care 8344R-4 39 AMDS 8344R-439 AMDS Outpatient [id number] GUEVARA LAZO 01/18 Discharge Disposition: Home or Self Care 8344R-4 39 AMDS Procedures Combined list of: 1) Procedures from Department of Veterans Affairs facilities [facility], not all [facility] non-surgical procedures are included; 2) All procedures from the Department of Defense facilities. Procedure Procedure Type Code Date Perfomer Comments [facility] e Audiometry Group Testing Audiometry Group Testing 29076 6 [facility]ctor Attenuation Measurements Ear Protector Attenuation Measurements 43814 6 [facility]ID [facility] Threshold Audiogram (Pure Tone) Threshold Audiogram (Pure Tone) 61471 6 [facility]ID [facility] Ear mold/insert, not disposable, any type 6 [facility] No data available for this section Ambulato ry Pharmacy Social History Combined list of available smoking, tobacco, and other social history from Department of Defense and Veterans Affairs facilities. Social History Type Response Date Comment [facility] e Sex Representation Male (finding) 04/21/2022 Un known Organization This section is an empty social history section. [facility] Sexual Orientation Ambula tory Pharmacy Gender identity Ambulator y Pharmacy Assessment and Plan Combined list of future care activities from Department of Defense and Veterans Affairs facilities (e.g., assessment and plan notes, appointments, orders, and referrals). Additional future care activities may be listed in the Plan of Care section. Result Assessment and Plan Date Source Assessment and Plan Extracted from:Title : PHA Author: MARILOU CHO Date: 01/17/25 Mbr came in for appt Addendum by YADIEL ACEVEDO on January 17, 2025 10:22 EDT ?Vitals: Blood Pressure:???164/102 (manual) Heart Rate: 71 Height: 73 Weight: 225 Medications: ?FAMOTIDINE lorasatin Atorvastin 10mg Chronic Problems: high blood pressure SF 507: N/A Comments: Extracted from:Title: Profile form And Supporting Docs Author: JOSEFINA SEN Date: 12/31/24 From: JOSEFINA SEN To: MARILOU CHO; Sent: 12/31/24 15:02:22 EDT Subject: Profile form And Supporting Docs Caller Name: Raghav Campos; Caller Number: H [phone] , M [phone] profile sheet and support documentation?from?PCM?was [...] Caller Name: Raghav Campos; Caller Number: H [phone] , M [phone] generated. Goal to complete walking portion of PT test this year - discussed surgery at visit. Please review, ma'am. Addendum by GUEVARA SANTAMARIA MD on January 17, 2025 17:18:45 EDT Documents reviewed.? [id number] signed. Extracted from:Title: Office Clinic Note Author: LULU [...] Extracted from:Title: Office Clinic Note Author: LULU ERESE PA Date: 12/27/22 1.?Right knee pain co [...] he will fu with his PCM once [facility] is approved patient agreed ? Ordered: [...] fu with his PCP in 10 days ([facility] will be approved by [facility]) to reevaluate for HTN. PCP name [...] as needed for pain not to exce... Diagnostic Tests PendingHIV-1/O/2 01/17/25Repository Sample, Serum 01/17/25 01/22/2025 8344R-[id number] AMDS Assessment and Plan Extracted from:Title : PHA Author: MARILOU CHO Date: 01/17/25 Mbr came in for appt Addendum by YADIEL ACEVEDO on January 17, 2025 10:22 EDT ?Vitals: Blood Pressure:???164/102 (manual) Heart Rate: 71 Height: 73 Weight: 225 Medications: ?FAMOTIDINE lorasatin Atorvastin 10mg Chronic Problems: high blood pressure SF 507: N/A Comments: Extracted from:Title: Profile form And Supporting Docs Author: JOSEFINA SEN Date: 12/31/24 From: JOSEFINA SEN To: MARILOU CHO; Sent: 12/31/24 15:02:22 EDT Subject: Profile form And Supporting Docs Caller Name: Andres Raghav J; Caller Number: H [phone] , M [phone] profile sheet and support documentation?from?PCM?was received for member. Please review documentation, initiate AF 469 in ASIMS, and complete any additional requirements for potential duty/ mobility limitations. ?4A0 /??Health Services Management Addendum by MARILOU CHO on January 01, 2025 09:48:14 EDT From: MARILOU CHO To: GUEVARA SANTAMARIA MD; Sent: 01/01/25 09:48:14 EDT Subject: FW: Profile form And Supporting Docs Caller Name: Gisella Camposiovelia Schulte; Caller Number: H [phone] , M [phone] generated. Goal to complete walking portion of PT test this year - discussed surgery at visit. Please review, ma'am. Addendum by GUEVARA SANTAMARIA MD on January 17, 2025 17:18:45 EDT Documents reviewed.? [id number] signed. Extracted from:Title: Office Clinic Note Author: LULU [...] he will fu with his PCM once [facility] is approved patient agreed ? Ordered: [...] fu with his PCP in 10 days ([facility] will be approved by [facility]) to reevaluate for HTN. PCP name [...] as needed for pain not to exce... Diagnostic Tests PendingHIV-1/O/2 01/17/25Repository Sample, Serum 01/17/25 01/22/2025 0775G-NQ-Y-66th [facility] Functional Status Combined list of recent functional and cognitive assessments recorded at Department of Defense and Veterans Affairs (VA).VA Functional Stevens Measurement (FIM) Scale: 1 = Total Assistance (Subject = 0% +), 2 = Maximal Assistance (Subject = 25% +), 3 = Moderate Assistance (Subject = 50% +), 4 = Minimal Assistance (Subject = 75% +), 5 = Supervision, 6 = Modified Stevens (Device), 7 = Complete Stevens (Timely, Safely). Assessment Date/Time Source Assessment Type Assessment Skill Assessment Score Assessment Details No data available for this section
== END 2025-01-22 12:36 | disposition home or self-care (01) ==
LOC: HO.HSMS 11:08
PROVIDERS: PCP Nurse Practitioner Family; Visit Provider Nurse Practitioner Family
DX: G47.33 Obstructive sleep apnea (adult) (pediatric) (principal); I10 Essential (primary) hypertension; J30.2 Other seasonal allergic rhinitis
CPT/HCPCS: 99214

== ENCOUNTER → 2025-01-22 11:08 | Outpatient (BNVA) | payer OTHER, SELFPAY | PROVIDERS: PCP Nurse Practitioner Family; Visit Provider Nurse Practitioner Family | DX: G47.33 Obstructive sleep apnea (adult) (pediatric) (principal); J30.2 Other seasonal allergic rhinitis; I10 Essential (primary) hypertension | CPT/HCPCS: 99212 ==

== ENCOUNTER 2025-03-17 07:20 | Outpatient (REF) | payer OTHER, SELFPAY ==
[2025-03-20 05:19] LABS: TS Negative Control Passed; TS Panel A 0; TS Panel B 0; TS Positive Control Passed; TSpotTB Negative (Negative)
== END 2025-03-17 07:21 | disposition home or self-care (01) ==
LOC: HO.HMGCLDS 07:20
PROVIDERS: PCP Nurse Practitioner Family; Visit Provider Nurse Practitioner Family
DX: Z11.1 Encounter for screening for respiratory tuberculosis (principal)
CPT/HCPCS: 36415; 86481

== ENCOUNTER 2025-05-27 10:51 | Outpatient (AMB) | payer OTHER, SELFPAY ==
[2025-05-27 11:05] VITALS: BP 150/100; PULSE 70; RESP 16; O2SAT 99; BMI 34.2
--- NOTE | 2025-05-27 11:05 | A.OFFPC_ITS ---
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 Required: No Accompanied by: Self / Same As Patient Allergies No Known Allergies Allergy (Verified 05/27/25 11:13) Medication List - Last Reconciled 05/27/25 by CAROLINE Courtney- atorvastatin 10 mg PO BEDTIME betamethasone dipropionate 0.05% topical losartan 25 mg PO DAILY omeprazole 20 mg PO DAILY 30 days Tobacco use date assessed: 05/27/25 Dental Screening Dental Screen Date: 05/27/25 Did you have a dental visit in the last 12 months?: Yes Did you have a dental problem in the last 6 months where you did not have access to dental care?: No Was dental information given to patient?: Patient has dentist HPI 6 months f/up HPI Details Chief Complaint The patient presents with ongoing right knee pain and bilateral foot pain. History of Present Illness The patient is a 40-year-old male presenting with a follow-up visit. He has a history of ongoing right knee pain, which has been previously evaluated with an MRI revealing osteochondritis, a possible osteochondral fracture, and arthrosis. Additionally, there is a tear of the posterior horn of the medial meniscus in the right knee. The patient has undergone physical therapy and has been advised to follow up with orthopedic specialists. He engages in physical activity, including running or brisk walking for about two miles, but experiences increased pain and swelling in the right knee, which is now affecting the left knee due to favoring. He also reports bilateral foot pain, predominantly in the left foot, and has been diagnosed with flat feet. The patient has essential hypertension, for which his losartan dosage has been increased to 50 mg. He has been instructed to monitor his blood pressure at home and report the readings. Additionally, he has a history of gastroesophageal reflux disease (GERD), for which he finds some relief with Tums, and a proton pump inhibitor has been prescribed. Social History - Exercise: Engages in running or brisk walking for about two miles. Health Maintenance Review of Systems - Musculoskeletal: Reports ongoing right knee pain and bilateral foot pain, predominantly in the left foot. - Cardiovascular: Denies chest pain, pal pitations, MICHAUD, dizziness, blurred vision - Gastrointestinal: Reports relief from GERD symptoms Physical Exam General: Cooperative, healthy appearing, comfortable, no acute distress and well developed Orientation: Patient oriented x3 Limitations: No limitations Head: Normal to inspection Ears: Hearing grossly normal bilaterally Nose: Normal external nose present Face and sinus: Normal facial exam Eyes: Appearance normal, both eyes and all related structures Neck: Normal visual inspection and Yes full ROM Respiratory: Normal respiratory effort and able to speak in complete sentences. Clear to auscultation bilaterally Cardiovascular: Regular rate and rhythm. Normal S1 and S2 GI: Normal to inspection. Soft to palpation and nontender Skin: No rashes or lesions noted Neuro: Patient oriented x3 Extremities: Normal to inspection, but patient reports ongoing bilateral foot pain, mostly left. No tenderness with actual palpation with dorsiflexion of toes and palpation, no tenderness noted. Positive dorsalis pedis, no active swelling or redness in the foot. Right knee pain with increased pain and swelling noted. + crepitus Results Plan 1. Right Knee Osteochondritis The patient will follow up with orthopedic specialists for further evaluation and management of right knee osteochondritis. Physical therapy has been completed, and the patient is advised to continue monitoring symptoms, especially during physical activities. 2. Essential Hypertension The patient's losartan dosage has been increased to 50 mg to better manage blood pressure. He is instructed to monitor his blood pressure at home and report the readings for further assessment. 3. Gastroesophageal Reflux Disease (Gerd ) The patient reports some relief from GERD symptoms wth tums. Will start a proton pump inhibitor (low dose) Discussion Notes I discussed with the patient the need to follow up with orthopedic specialists for his right knee issues, including osteochondritis and meniscus tear. We reviewed the increase in losartan dosage to manage his hypertension and the importance of home blood pressure monitoring. For GERD, I recommended starting a proton pump inhibitor. Patient Instructions - Follow up with orthopedic specialists for knee evaluation. - Continue physical activity but monitor for knee pain and swelling. - Take losartan 50 mg daily and monitor blood pressure at home. - Start proton pump inhibitor for GERD -XR for left foot ordered [facility] Medical History Flat feet, bilateral ANGELICA (obstructive sleep apnea) Migraines Degenerative arthritis of lumbar spine Surgical History S/P shoulder surgery Family History Father Diabetes Mother No problems noted. 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 1. Little interest or pleasure in doing things: not at all 2. Feeling down, depressed, or hopeless: not at all 3. Trouble falling or staying asleep, or sleeping too much: not at all 4. Feeling tired or having little energy: not at all 5. Poor appetite or overeating: not at all 6. Feeling bad about yourself - or that you are a failure or have let yourself or your family down: not at all 7. Trouble concentrating on things, such as reading the newspaper or watching television: not at all 8. Moving or speaking so slowly that other people could have noticed. Or the opposite - being so fidgety or restless that you have been moving around a lot more than usual: not at all 9. Thoughts that you would be better off or of hurting yourself in some way: not at all Total score: 0 Depression Screening Interpretation: Negative Depression Screening Done: Yes 71076 - PHQ-9 Billing: Yes Source: Developed by Drs. Franky Agarwal, Yolande Dorsey, Riaz Li and colleagues, with an educational fior from [employer]. Thrive Questionnaire Date Thrive assessed: 10/30/24 I am a: Patient What is your living situation today?: I have a steady place to live Within the past 12 months, did the food you bought not last and you didn't have the money to get more?: Never true Within the past 12 months, did you worry whether your food would run out before you got money to buy more?: Never true Do you have trouble paying for medicines?: No Do you have trouble getting transportation to medical appointments?: No Do you have trouble paying your heating and electricity bill?: No Do you have trouble taking care of your child, family member or friend?: No Do you have trouble with day-to-day activities such as bathing, preparing meals, shopping, managing finances, etc.?: No Are you currently unemployed and looking for a job?: No Are you interested in more education?: No Please select the resources that you would like help with: None Currently or been in a relationship where the following occur: No concerns reported THRIVE Score: 0 SARAH-7 AMB Questionnaire SARAH-7 Date SARAH - 7 assessed: 05/27/25 Feeling nervous, anxious, or on edge: 0 = Not at all Not being able to stop or control worryin = Not at all Worrying too much about different things: 0 = Not at all Trouble relaxin = Not at all Being so restless that it is hard to sit still: 0 = Not at all Becoming easily annoyed or irritable: 0 = Not at all Feeling afraid as if something awful might happen: 0 = Not at all Total SARAH-7 score (0-4 normal; 5-9 mild; 10-14 moderate; 15-21 severe): 0 Source: Developed by Drs. Franky Agarwal, Yolande Dorsey, Riaz Li and colleagues, with an educational fior from [employer]. SARAH-7 Assessment Billing SARAH-7 Assessment Tool: SARAH-7 Assessment 33269 Physical exam (Primary Care) Vital Signs: Last Vital Signs Pulse 70 05/27/25 11:05 Resp 16 05/27/25 11:05 BP 150/100 H 05/27/25 11:05 Pulse Ox 99 05/27/25 11:05 Oxygen Delivery Method Room Air 05/27/25 11:05 BMI result Body Mass Index 34.2 Tobacco/Smoking Status: Tobacco use Status Tobacco use date assessed 05/27/25 05/27/25 11:15 Patient Tobacco Use Status Never used Tobacco 05/27/25 11:07 e-Cigarette/Vaping Use Never Used 05/27/25 11:07 PHQ-9: PHQ-9 Score PHQ-9: Total score 0 05/27/25 11:32 Depression Screening Interpretation: Negative Thrive Assessment: Date of Thrive Assessment Date Thrive assessed 10/30/24 05/27/25 11:07 Currently or been in a relationship where the following occur: No concerns reported Coding Level of Care Code Est Pt Level 4 (86942) Diagnoses Dyslipidemia E78.5 HTN (hypertension) I10 Left foot pain M79.672 GERD (gastroesophageal reflux disease) K21.9 Tear of medial meniscus of right knee S83.241A Arthritis of right knee M17.11 Additional Codes SARAH-7 Assessment Billing - SARAH-7 Assessment Tool: SARAH-7 Assessment 18746 ([id number]) PHQ-9 - 05273 - PHQ-9 Billing: Yes ([id number]) Assessment & Plan Assessment & Plan (1) Dyslipidemia: Code(s): E78.5 - Hyperlipidemia, unspecified Category: Medical (2) HTN (hypertension): Code(s): I10 - Essential (primary) hypertension Category: Medical (3) Left foot pain: Code(s): M79.672 - Pain in left foot Category: Medical (4) GERD (gastroesophageal reflux disease): Code(s): K21.9 - Gastro-esophageal reflux disease without esophagitis Category: Medical (5) Tear of medial meniscus of right knee: Code(s): S83.241A - Other tear of medial meniscus, current injury, right knee, initial encounter Category: Medical (6) Arthritis of right knee: Code(s): M17.11 - Unilateral primary osteoarthritis, right knee Category: Medical Plan . Orders: Orders Comprehensive [place]. Panel Fast Today E78.5 - Hyperlipidemia, unspecified, I10 - Essential (primary) hypertension UA CC w/rflx Micro + Cult Today E78.5 - Hyperlipidemia, unspecified, I10 - Essential (primary) hypertension Complete Blood Count Auto Diff Today E78.5 - Hyperlipidemia, unspecified, I10 - Essential (primary) hypertension TSH reflex Free T4 Today E78.5 - Hyperlipidemia, unspecified, I10 - Essential (primary) hypertension Lipid Panel Today E78.5 - Hyperlipidemia, unspecified, I10 - Essential (primary) hypertension XR Foot Felipe 3V Today M79.672 - Pain in left foot Medications: New omeprazole 20 mg PO DAILY 30 caps 2RF 30 days Changed From losartan 25 mg PO DAILY 90 tabs 1RF To losartan 50 mg PO DAILY 30 tabs 3RF
[2025-05-27 11:53] VITALS: BP 130/98
== END 2025-05-27 12:04 | disposition home or self-care (01) ==
LOC: HO.HMCC 10:52
PROVIDERS: PCP Nurse Practitioner Family; Visit Provider Nurse Practitioner Family
DX: E78.5 Hyperlipidemia, unspecified (principal); I10 Essential (primary) hypertension; M79.672 Pain in left foot; K21.9 Gastro-esophageal reflux disease without esophagitis; S83.241A Other tear of medial meniscus, current injury, right knee, initial encounter; M17.11 Unilateral primary osteoarthritis, right knee

== ENCOUNTER 2025-05-27 10:51 | Outpatient (REF) | payer OTHER, SELFPAY ==
--- NOTE | ~2025-05-27 | XR_ITS ---
Exam: XR FOOT 3 OR MORE VIEWS BILATERAL, bilateral foot x-rays TECHNIQUE: AP, OBL and lateral views lower extremity, bilateral feet INDICATION: Bilateral foot pain. COMPARISON: None available. FINDINGS: RIGHT FOOT: There is a bipartite medial sesamoid of the great toe. No fractures are identified. There is no joint diastases or malalignment. Joint spaces are preserved. There are no calcaneal spurs. LEFT FOOT: There is a bipartite medial sesamoid of the great toe. There is chronic appearing narrowing of the tuft of the great toe. No fractures are identified. There is no joint diastases or malalignment. Joint spaces are preserved. There are no calcaneal spurs. XR/XR Foot Felipe 3V IMPRESSION: Right foot: Unremarkable right foot Left foot: There is narrowing of the tuft of the great toe which is of uncertain significance and appears chronic and is likely developmental or congenital. Electronically signed by: Anthony Starks MD 05/27/2025 12:58 PM EDT
== END 2025-05-27 10:52 | disposition home or self-care (01) ==
LOC: HO.HMGCX 10:51
PROVIDERS: PCP Nurse Practitioner Family; Visit Provider Nurse Practitioner Family
DX: M79.672 Pain in left foot (principal); M79.671 Pain in right foot; S83.241A Other tear of medial meniscus, current injury, right knee, initial encounter; M17.11 Unilateral primary osteoarthritis, right knee; E78.5 Hyperlipidemia, unspecified; I10 Essential (primary) hypertension; K21.9 Gastro-esophageal reflux disease without esophagitis; Z79.899 Other long term (current) drug therapy
CPT/HCPCS: 73630; 96127; 99212

== ENCOUNTER → 2025-05-27 12:22 | Outpatient (BNV) | payer OTHER, SELFPAY | PROVIDERS: PCP Nurse Practitioner Family; Visit Provider Radiology Diagnostic Radiology | DX: M79.671 Pain in right foot (principal); M79.672 Pain in left foot | CPT/HCPCS: 73630 ==